=== PATIENT | female | born 1935 | race Caucasian/White ===

== ENCOUNTER 2016-03-21 13:25 | Emergency (ER) | payer MEDICARE ==
--- NOTE | 2016-03-21 13:51 | ER Document Report ---
ED Medical Screen (RME) - General Stated Complaint: WEAKNESS Time seen by provider: 13:48 Mode of Arrival: Wheelchair Information source: Patient Notes: 80-year-old female presents to ED for diarrhea. She states she has had diarrhea for 17 years since she started on gyiburide but it is much worse right now. States that she's already discussed straight through her and she's not been not getting any nutrition from it. States she has no appetite and she has diabetic. Has not had her Accu-Chek this morning due to not having enough blood. I have greeted and performed a rapid initial assessment of this patient. A comprehensive ED assessment and evaluation of the patient, analysis of test results and completion of medical decision making process will be conducted by an additional ED providers. TRAVEL OUTSIDE OF THE [place] IN LAST 30 DAYS: No - Related Data Allergies/Adverse Reactions: metoprolol succinate [From Toprol XL] Allergy (Verified 01/28/14 12:48) Penicillins Allergy (Verified 01/28/14 12:48) Past Medical History - Past Medical History Cardiac Medical History: Reports: Hx Hypercholesterolemia, Hx Hypertension Neurological Medical History: Reports: Hx Cerebrovascular Accident Endocrine Medical History: Reports: Hx Diabetes Mellitus Type 2 Past Surgical History: Reports: Hx Cardiac Surgery - pacemaker placement - Immunizations Hx Diphtheria, Pertussis, Tetanus Vaccination: Yes Physical Exam - Vital signs Vitals: Temp Pulse Resp BP Pulse Ox 98.2 F 72 18 148/60 H 95 03/21/16 13:44 03/21/16 13:44 03/21/16 13:44 03/21/16 13:44 03/21/16 13:44 Course - Vital Signs Vital signs: Temp Pulse Resp BP Pulse Ox 98.2 F 72 18 148/60 H 95 03/21/16 13:44 03/21/16 13:44 03/21/16 13:44 03/21/16 13:44 03/21/16 13:44
[2016-03-21 14:21] LABS: ABSOLUTE BASOPHILS # (AUTO) 0.1 10^3/uL (0.0-0.2); ABSOLUTE EOSINOPHILS # (AUTO) 0.2 10^3/uL (0.0-0.6); ABSOLUTE LYMPHOCYTES (AUTO) 2.2 10^3/uL (0.5-4.7); ABSOLUTE MONOCYTES (AUTO) 0.7 10^3/uL (0.1-1.4); ABSOLUTE NEUT (AUTO) 4.3 10^3/uL (1.7-8.2); BASOPHILS % (AUTO) 1.5 % (0-2); EOSINOPHILS % (AUTO) 2.8 % (0-6); HEMATOCRIT 41.8 % (36.0-47.0); HEMOGLOBIN 13.8 g/dL (12.0-15.5); HGB HCT DIFFERENCE -0.4; LYMPHOCYTES % (AUTO) 28.5 % (13-45); MEAN CORPUSCULAR HEMOGLOBIN 29.8 pg (27.0-33.4); MEAN CORPUSCULAR VOLUME 90 fl (80-97); MONOCYTES % (AUTO) 9.9 % (3-13); RED BLOOD COUNT 4.62 10^6/uL (3.72-5.28); RED CELL DISTRIBUTION WIDTH 13.6 % (11.5-14.0); SEGMENTED NEUTROPHILS % (AUTO) 57.3 % (42-78); WHITE BLOOD COUNT 7.5 10^3/uL (4.0-10.5)
[2016-03-21 14:30] LABS: ALANINE AMINOTRANSFERASE 30 U/L (9-52); ALBUMIN 4.2 g/dL (3.5-5.0); ALKALINE PHOSPHATASE 142 U/L (38-126); ANION GAP 14 (5-19); ASPARTATE AMINO TRANSFERASE 21 U/L (14-36); BILIRUBIN,TOTAL 0.7 mg/dL (0.2-1.3); BLOOD UREA NITROGEN 39 mg/dL (7-20); CALCIUM 9.5 mg/dL (8.4-10.2); CARBON DIOXIDE 24 mmol/L (22-30); CHLORIDE 98 mmol/L (98-107); CREATININE RESULT 2.29 mg/dL (0.52-1.25); GLUCOSE 285 mg/dL (75-110); POTASSIUM 4.7 mmol/L (3.6-5.0); SODIUM 136.2 mmol/L (137-145); TOTAL PROTEIN 8.3 g/dL (6.3-8.2)
[2016-03-21] MEDS ORDERED: NORMAL SALINE 1000 ML 1,000 ML IV PRN (16:31)
--- NOTE | 2016-03-21 16:35 | ER Document Report ---
ED General - General Chief Complaint: Loose Stools Stated Complaint: WEAKNESS Time seen by provider: 16:33 Mode of Arrival: Wheelchair Information source: Patient Notes: This is an 80-year-old female with a history of diabetes, chronic kidney disease who presents to the emergency room with diarrhea, dizziness and generalized weakness. Patient states that the diarrhea has been worse lately. She states that she thinks it's from the glipizide but she's been on the glipizide for quite some time. The patient denies any chest pain, shortness of breath, abdominal pain. Patient does state she's got decreased appetite. She denies fever, blood in the stool. She states that the diarrhea is very watery. TRAVEL OUTSIDE OF THE [place] IN LAST 30 DAYS: No - HPI Onset: Other - Diarrhea for the past several months Onset/Duration: Gradual Quality of pain: No pain Severity: None Pain Level: Denies Associated symptoms: denies: Chills, Nonproductive cough, Productive cough, Fever Exacerbated by: Denies Relieved by: Denies Similar symptoms previously: Yes Recently seen / treated by doctor: No - Related Data Allergies/Adverse Reactions: metoprolol succinate [From Toprol XL] Allergy (Verified 03/21/16 13:49) Penicillins Allergy (Verified 03/21/16 13:49) Past Medical History - General Information source: Patient - Social History Smoking Status: Never Smoker Cigarette use (# per day): No Chew tobacco use (# tins/day): No Frequency of alcohol use: None Drug Abuse: None Lives with: Family Family History: Reviewed & Not Pertinent Patient has suicidal ideation: No Patient has homicidal ideation: No - Past Medical History Cardiac Medical History: Reports: Hx Hypercholesterolemia, Hx Hypertension Pulmonary Medical History: Reports: None EENT Medical History: Reports: None Neurological Medical History: Reports: Hx Cerebrovascular Accident Endocrine Medical History: Reports: Hx Diabetes Mellitus Type 2 Renal/ Medical History: Denies: Hx Peritoneal Dialysis Malignancy Medical History: Reports: None GI Medical History: Reports: Other Musculoskeltal Medical History: Reports Hx Arthritis Skin Medical History: Reports None Psychiatric Medical History: Reports: None Traumatic Medical History: Reports: None Infectious Medical History: Reports: None Past Surgical History: Reports: Hx Cardiac Surgery - pacemaker placement - Immunizations Hx Diphtheria, Pertussis, Tetanus Vaccination: Yes Review of Systems - Review of Systems Constitutional: denies: Chills, Fever EENT: No symptoms reported Cardiovascular: No symptoms reported Respiratory: No symptoms reported Gastrointestinal: See HPI Genitourinary: No symptoms reported Female Genitourinary: No symptoms reported Musculoskeletal: No symptoms reported Skin: No symptoms reported Hematologic/Lymphatic: No symptoms reported Neurological/Psychological: No symptoms reported Physical Exam - Vital signs Vitals: Temp Pulse Resp BP Pulse Ox 98.2 F 72 18 148/60 H 95 03/21/16 13:44 03/21/16 13:44 03/21/16 13:44 03/21/16 13:44 03/21/16 13:44 Notes: Physical exam: GENERAL: 20-year-old female, alert and oriented 3, no acute distress. HEAD: Atraumatic, normocephalic. EYES: Pupils equal round and reactive to light, extraocular movements intact, sclera anicteric, conjunctiva are normal. ENT: TMs normal, nares patent, oropharynx clear without exudates. Moist mucous membranes. NECK: Normal range of motion, supple without lymphadenopathy or JVD. LUNGS: Breath sounds clear to auscultation bilaterally and equal. No wheezes rales or rhonchi. HEART: Regular rate and rhythm without murmurs, rubs or gallops. ABDOMEN: Soft, normoactive bowel sounds. No tenderness to palpation. No guarding, no rebound. No masses appreciated. EXTREMITIES: Normal range of motion, no pitting or edema. No clubbing or cyanosis. NEUROLOGICAL: Cranial nerves II through XII grossly intact. Normal speech, normal gait. PSYCH: Normal mood, normal affect. SKIN: Warm, Dry, normal turgor, no rashes or lesions noted. Course - Vital Signs Vital signs: Temp Pulse Resp BP Pulse Ox 98.2 F 70 18 187/62 H 96 03/21/16 13:44 03/21/16 19:08 03/21/16 13:44 03/21/16 19:08 03/21/16 19:08 - Laboratory Result Diagrams: 03/21/16 13:55 03/21/16 13:55 Laboratory results interpreted by me: 03/21/16 13:55 Sodium 136.2 L BUN 39 H Creatinine 2.29 H Est GFR ( Amer) 25 L Est GFR (Non-Af Amer) 20 L Glucose 285 H Alkaline Phosphatase 142 H Total Protein 8.3 H - Diagnostic Test Radiology reviewed: Image reviewed, Reports reviewed - CT of the head shows no bleed or evidence of strokes. Discharge - Discharge Clinical Impression: diarrhea, dehydration Condition: Stable Disposition: HOME, SELF-CARE Instructions: Diarrhea, Nonspecific ([facility]), Dehydration ([facility]) Additional Instructions: Recommendations Rest, drink plenty of fluids. Right as tolerated. Follow-up with your doctor: If you cannot get into the office, consider the [facility] primary care office in [place] on [facility]. When you are evaluated by physician: Bring a copy of today's labs with you. Return to the emergency room for worsening weakness or concerns that you going to faint or any concerns he getting worse.
[2016-03-21 17:05] LABS: CREATINE KINASE MB 0.83 ng/mL (<4.55)
[2016-03-21 17:07] LABS: TROPONIN I < 0.012 ng/mL
[2016-03-21 19:09] VITALS: BP 187/62
--- NOTE | 2016-03-21 23:47 | EKG REPORT ---
SEVERITY:- BORDERLINE ECG - SINUS RHYTHM LOW VOLTAGE IN FRONTAL LEADS BORDERLINE R WAVE PROGRESSION, ANTERIOR LEADS : Confirmed by: Anne-Marie Schwartz 21-Mar-2016 23:46:35
== END 2016-03-21 19:08 | disposition home or self-care (01) ==
LOC: ER 13:25
DX: R19.7 Diarrhea, unspecified (principal); E86.0 Dehydration; R42 Dizziness and giddiness; R53.1 Weakness; R63.0 Anorexia; I10 Essential (primary) hypertension; E11.9 Type 2 diabetes mellitus without complications; Z79.84 Long term (current) use of oral hypoglycemic drugs; Z88.0 Allergy status to penicillin; Z88.8 Allergy status to other drugs, medicaments and biological substances; Z86.73 Personal history of transient ischemic attack (TIA), and cerebral infarction without residual deficits; Z95.0 Presence of cardiac pacemaker
CPT/HCPCS: 36415; 70450; 80053; 82550; 82553; 84484; 85025; 93005; 93010; 96360; 96361; 99284

== ENCOUNTER → 2019-02-19 | Outpatient (CLI) | payer MEDICARE ==
[2019-02-19 14:23] LABS: ALBUMIN 4.5 g/dL (3.5-5.0); ANION GAP 17 (5-19); BLOOD UREA NITROGEN 85 mg/dL (7-20); CALCIUM 9.7 mg/dL (8.4-10.2); CARBON DIOXIDE 24 mmol/L (22-30); CHLORIDE 97 mmol/L (98-107); GLUCOSE 128 mg/dL (75-110); IRON(TIBC) 83.6 ug/dL (37-170); PHOSPHORUS 6.3 mg/dL (2.5-4.5); POTASSIUM 5.4 mmol/L (3.6-5.0)
[2019-02-19 14:55] LABS: URINE CREATININE 44.4 mg/dL (15-278)
[2019-02-19 15:03] LABS: UR PRO/CREAT RATIO RESULT 5.5 mg/mg (0.0-0.2); URINE PROTEIN 243.9 mg/dL (<12)
[2019-02-19 15:30] LABS: FOLATE 9.97 ng/mL (>2.76)
== END ==
LOC: OD 12:46
PROVIDERS: ATTEND Internal Medicine Nephrology
DX: E11.22 Type 2 diabetes mellitus with diabetic chronic kidney disease (principal); I12.9 Hypertensive chronic kidney disease with stage 1 through stage 4 chronic kidney disease, or unspecified chronic kidney disease; N18.5 Chronic kidney disease, stage 5; D63.1 Anemia in chronic kidney disease
CPT/HCPCS: 36415; 80069; 82306; 82570; 82607; 82728; 82746; 83540; 83550; 83735; 84156

== ENCOUNTER → 2019-03-11 | Outpatient (CLI) | payer MEDICARE ==
[2019-03-11 12:07] LABS: HEMATOCRIT 29.4 % (36.0-47.0); HEMOGLOBIN 10.2 g/dL (12.0-15.5); MEAN CORPUSCULAR HEMOGLOBIN 32.3 pg (27.0-33.4); MEAN CORPUSCULAR HGB CONC 34.8 g/dL (32.0-36.0); MEAN CORPUSCULAR VOLUME 93 fl (80-97); PLATELET COUNT 182 10^3/uL (150-450); RED BLOOD COUNT 3.16 10^6/uL (3.72-5.28); RED CELL DISTRIBUTION WIDTH 13.1 % (11.5-14.0)
[2019-03-11 12:20] LABS: UR PRO/CREAT RATIO RESULT 2.7 mg/mg (0.0-0.2); URINE CREATININE 53.7 mg/dL (15-278); URINE PROTEIN 145.7 mg/dL (<12)
[2019-03-11 12:24] LABS: ALBUMIN 4.2 g/dL (3.5-5.0); ANION GAP 17 (5-19); BLOOD UREA NITROGEN 86 mg/dL (7-20); CALCIUM 9.7 mg/dL (8.4-10.2); CARBON DIOXIDE 23 mmol/L (22-30); CHLORIDE 97 mmol/L (98-107); GLUCOSE 155 mg/dL (75-110); IRON(TIBC) 86.5 ug/dL (37-170)
[2019-03-11 12:50] LABS: PHOSPHORUS 4.7 mg/dL (2.5-4.5)
[2019-03-11 13:18] LABS: ABSOLUTE LYMPHOCYTES# (MANUAL) 1.5 10^3/uL (0.5-4.7); ABSOLUTE MONOCYTES # (MANUAL) 0.4 10^3/uL (0.1-1.4); BAND NEUTROPHILS % (MANUAL) 1 % (3-5); BASOPHILS % (MANUAL) 3 % (0-2); EOSINOPHILS % (MANUAL) 10 % (0-6); LYMPHOCYTES % (MANUAL) 25 % (13-45); MONOCYTES % (MANUAL) 7 % (3-13); SEGMENTED NEUTROPHILS % (MAN) 54 % (42-78); TOTAL CELLS COUNTED 100
[2019-03-11 13:20] LABS: PLATELET COMMENT ADEQUATE; RBC MORPHOLOGY COMMENT NORMO-CYTIC/CHROMIC
[2019-03-11 14:43] LABS: FOLATE 8.12 ng/mL (>2.76)
== END ==
LOC: OD 11:18
PROVIDERS: ATTEND Internal Medicine Nephrology
DX: I12.0 Hypertensive chronic kidney disease with stage 5 chronic kidney disease or end stage renal disease (principal); N18.5 Chronic kidney disease, stage 5; E11.22 Type 2 diabetes mellitus with diabetic chronic kidney disease; D63.1 Anemia in chronic kidney disease
CPT/HCPCS: 36415; 80069; 82306; 82570; 82607; 82728; 82746; 83540; 83550; 83735; 83970; 84156; 85025

== ENCOUNTER → 2019-04-01 | Outpatient (CLI) | payer MEDICARE ==
[2019-04-01 12:57] LABS: HEMATOCRIT 30.5 % (36.0-47.0); HEMOGLOBIN 10.2 g/dL (12.0-15.5); MEAN CORPUSCULAR HEMOGLOBIN 32.1 pg (27.0-33.4); MEAN CORPUSCULAR HGB CONC 33.6 g/dL (32.0-36.0); MEAN CORPUSCULAR VOLUME 96 fl (80-97); PLATELET COUNT 161 10^3/uL (150-450); RED BLOOD COUNT 3.19 10^6/uL (3.72-5.28); WHITE BLOOD COUNT 6.5 10^3/uL (4.0-10.5)
[2019-04-01 13:21] LABS: ANION GAP 14 (5-19); BLOOD UREA NITROGEN 81 mg/dL (7-20); CALCIUM 9.5 mg/dL (8.4-10.2); CARBON DIOXIDE 23 mmol/L (22-30); CHLORIDE 98 mmol/L (98-107); GLUCOSE 141 mg/dL (75-110); PHOSPHORUS 5.3 mg/dL (2.5-4.5); POTASSIUM 5.7 mmol/L (3.6-5.0)
[2019-04-01 14:04] LABS: ABSOLUTE LYMPHOCYTES# (MANUAL) 1.4 10^3/uL (0.5-4.7); ABSOLUTE MONOCYTES # (MANUAL) 0.5 10^3/uL (0.1-1.4); BASOPHILS % (MANUAL) 1 % (0-2); EOSINOPHILS % (MANUAL) 9 % (0-6); LYMPHOCYTES % (MANUAL) 22 % (13-45); MONOCYTES % (MANUAL) 8 % (3-13); SEGMENTED NEUTROPHILS % (MAN) 60 % (42-78); TOTAL CELLS COUNTED 100
[2019-04-01 14:05] LABS: PLATELET COMMENT ADEQUATE; RBC MORPHOLOGY COMMENT NORMO-CYTIC/CHROMIC
== END ==
LOC: OD 12:05
PROVIDERS: ATTEND Internal Medicine Nephrology
DX: E11.22 Type 2 diabetes mellitus with diabetic chronic kidney disease (principal); I12.0 Hypertensive chronic kidney disease with stage 5 chronic kidney disease or end stage renal disease; N18.5 Chronic kidney disease, stage 5; E55.9 Vitamin D deficiency, unspecified; N25.81 Secondary hyperparathyroidism of renal origin
CPT/HCPCS: 36415; 80048; 84100; 85025

== ENCOUNTER → 2019-04-04 | Outpatient (CLI) | payer MEDICARE ==
[2019-04-04 13:38] LABS: ANION GAP 14 (5-19); BLOOD UREA NITROGEN 71 mg/dL (7-20); CALCIUM 9.3 mg/dL (8.4-10.2); CARBON DIOXIDE 24 mmol/L (22-30); CHLORIDE 98 mmol/L (98-107); GLUCOSE 117 mg/dL (75-110); POTASSIUM 4.6 mmol/L (3.6-5.0)
== END ==
LOC: OD 12:47
PROVIDERS: ATTEND Internal Medicine Nephrology
DX: N18.5 Chronic kidney disease, stage 5 (principal)
CPT/HCPCS: 36415; 80048

== ENCOUNTER → 2019-09-04 | Outpatient (CLI) | payer MEDICARE ==
[2019-09-04 12:46] LABS: ABSOLUTE BASOPHILS # (AUTO) 0.1 10^3/uL (0.0-0.2); ABSOLUTE EOSINOPHILS # (AUTO) 0.7 10^3/uL (0.0-0.6); ABSOLUTE LYMPHOCYTES (AUTO) 1.6 10^3/uL (0.5-4.7); ABSOLUTE MONOCYTES (AUTO) 0.6 10^3/uL (0.1-1.4); ABSOLUTE NEUT (AUTO) 3.3 10^3/uL (1.7-8.2); EOSINOPHILS % (AUTO) 11.6 % (0-6); HEMATOCRIT 24.8 % (36.0-47.0); HEMOGLOBIN 8.4 g/dL (12.0-15.5); LYMPHOCYTES % (AUTO) 25.8 % (13-45); MEAN CORPUSCULAR HEMOGLOBIN 32.2 pg (27.0-33.4); MEAN CORPUSCULAR HGB CONC 33.8 g/dL (32.0-36.0); MEAN CORPUSCULAR VOLUME 95 fl (80-97); MONOCYTES % (AUTO) 8.9 % (3-13); PLATELET COUNT 165 10^3/uL (150-450); RED BLOOD COUNT 2.61 10^6/uL (3.72-5.28); RED CELL DISTRIBUTION WIDTH 13.2 % (11.5-14.0); SEGMENTED NEUTROPHILS % (AUTO) 51.7 % (42-78); TOTAL CELLS COUNTED % (AUTO) 100 %; WHITE BLOOD COUNT 6.4 10^3/uL (4.0-10.5)
[2019-09-04 12:54] LABS: ALBUMIN 4.1 g/dL (3.5-5.0); ANION GAP 12 (5-19); BLOOD UREA NITROGEN 81 mg/dL (7-20); CALCIUM 10.5 mg/dL (8.4-10.2); CARBON DIOXIDE 23 mmol/L (22-30); CHLORIDE 99 mmol/L (98-107); GLUCOSE 134 mg/dL (75-110); PHOSPHORUS 6.2 mg/dL (2.5-4.5); POTASSIUM 5.2 mmol/L (3.6-5.0)
[2019-09-04 17:41] LABS: IRON(TIBC) 60.1 ug/dL (37-170)
[2019-09-05 14:02] LABS: APPEARANCE,URINE SLIGHTLY-CLOUDY; BILIRUBIN,URINE NEGATIVE (NEGATIVE); COLOR,URINE YELLOW; GLUCOSE, URINE NEGATIVE (NEGATIVE); KETONES,URINE NEGATIVE (NEGATIVE); LEUKOCYTE ESTERASE,URINE TRACE (NEGATIVE); NITRITE,URINE NEGATIVE (NEGATIVE); PROTEIN,URINE 100 mg/dL (NEGATIVE); URINE SPECIFIC GRAVITY 1.012; UROBILINOGEN,URINE NEGATIVE mg/dL (<2.0)
== END ==
LOC: OD 12:13
PROVIDERS: ATTEND Internal Medicine Nephrology
DX: N18.5 Chronic kidney disease, stage 5 (principal); D63.1 Anemia in chronic kidney disease; R80.1 Persistent proteinuria, unspecified; E21.1 Secondary hyperparathyroidism, not elsewhere classified
CPT/HCPCS: 36415; 80069; 81001; 82043; 82306; 82570; 82728; 83540; 83550; 83735; 83970; 85025

== ENCOUNTER 2019-09-09 14:37 | Inpatient (IN) | payer MEDICARE ==
--- NOTE | 2019-09-09 15:45 | ER Document Report ---
ED General - General Chief Complaint: Nausea/Vomiting Stated Complaint: NAUSEA Time Seen by Provider: 09/09/19 15:27 Primary Care Provider: JOSLYN REYNOLDS MD [Primary Care Provider] - Follow up as needed Notes: 83-year-old female with a history of end-stage renal disease who is supposed to start dialysis tomorrow presents emergency department complaining of generalized weakness, dry heaving pretty much every morning that gets better when her daughter puts her on her home oxygen. Daughter states that last evening/early this morning around 4 AM the patient's oxygen saturation was noted to be 70%. The daughter does have oxygen at home so the daughter put the patient on oxygen and she felt better. Patient denies any true vomiting, does admit a small amount of diarrhea last evening that was nonbloody and not melanotic. Patient's really only complaint is feeling short of breath. Denies cough, denies fevers, denies chest pain or abdominal pain. Denies swelling in her legs. States she does not have a history of congestive heart failure. Patient is prescribed Lasix 80 mg daily, daughter states that she only gives her half a tablet a day unless the patient's legs are swollen and then she gives her the full [address] Taylor's orders. TRAVEL OUTSIDE OF THE [place] IN LAST 30 DAYS: No - Related Data Allergies/Adverse Reactions: metoprolol succinate [From Toprol XL] Allergy (Verified 09/09/19 15:42) Penicillins Allergy (Verified 09/09/19 15:42) Past Medical History - General Information source: Patient, Relative - Social History Smoking Status: Never Smoker Frequency of alcohol use: None Drug Abuse: None Family History: Reviewed & Not Pertinent - Past Medical History Cardiac Medical History: Reports: Hx Hypercholesterolemia, Hx Hypertension Neurological Medical History: Reports: Hx Cerebrovascular Accident Endocrine Medical History: Reports: Hx Diabetes Mellitus Type 2 Renal/ Medical History: Denies: Hx Peritoneal Dialysis GI Medical History: Reports: Hx Ulcer Musculoskeletal Medical History: Reports Hx Arthritis Past Surgical History: Reports: Hx Cardiac Surgery - pacemaker placement - Immunizations Hx Diphtheria, Pertussis, Tetanus Vaccination: Yes Review of Systems - Review of Systems Constitutional: See HPI, Weakness EENT: No symptoms reported Cardiovascular: No symptoms reported Respiratory: See HPI, Short of breath Gastrointestinal: See HPI, Diarrhea, Nausea. denies: Vomiting -: Yes All other systems reviewed and negative Physical Exam - Vital signs Vitals: Pulse Ox 88 L 09/09/19 14:48 Interpretation: Hypoxic - Notes Notes: GENERAL: Alert, sitting up in bed, leaning forward however she is able to lay back flat without difficulty. Appears somewhat short of breath. HEAD: Normocephalic, atraumatic EYES: Pupils equal, round and reactive to light, extraocular movements intact. ENT: Oral mucosa moist, tongue midline. NECK: Full range of motion, supple, trachea midline. LUNGS: Crackles at the bases and approximately one third of the way up the lung zones, no wheezes. Moderately tachypneic. Requiring 5 L via nasal cannula to stay at 92%. HEART: Regular rate and rhythm, 3/6 systolic murmur, no gallops or rubs. ABDOMEN: Soft, nontender, nondistended, bowel sounds present in all 4 quadrants. EXTREMITIES: Moves all 4 extremities spontaneously, no edema, radial and dorsalis pedis pulses 2/4 bilaterally. No cyanosis. AV fistula in the right arm with palpable thrill. NEUROLOGICAL: Alert and oriented x3, normal speech. PSYCH: Normal mood, normal affect. SKIN: Warm, Dry, normal turgor. Course - Re-evaluation Re-evalutation: 09/09/19 17:02 CBC shows anemia with a hemoglobin 8.4, platelets normal, INR slightly prolonged, CMP shows potassium elevated at 5.7. No significant peak T waves on the EKG, patient is being treated with calcium gluconate, insulin, glucose, Lasix, sodium bicarb and V[place]. proBNP is markedly elevated, BUN and creatinine consistent with end-stage renal disease. Chest x-ray shows fluid overload. Patient currently doing quite well on 5 L via nasal cannula. No indication for intubation or BiPAP at this time. Discussed case with Dr. Reynolds who agrees to dialyze the patient tomorrow morning. Also discussed case with Dr. Pedersen who agrees to admit the patient to the [facility]. - Vital Signs Vital signs: Temp Pulse Resp BP Pulse Ox 99.2 F 18 141/47 H 90 L 09/09/19 16:38 09/09/19 16:23 09/09/19 16:23 09/09/19 16:23 - Laboratory Result Diagrams: 09/09/19 15:29 09/09/19 15:29 Laboratory results interpreted by me: 09/09/19 09/09/19 09/09/19 15:29 15:29 15:29 RBC 2.61 L Hgb 8.4 L Hct 25.1 L Lymph % (Auto) 11.2 L Seg Neutrophils % 78.3 H Sodium 136.2 L Potassium 5.7 H BUN 98 H Creatinine 6.99 H Est GFR ( Amer) 7 L Est GFR (MDRD) Non-Af 6 L Glucose 124 H CK-MB (CK-2) 6.25 H NT-Pro-B Natriuret Pep 40515 H - EKG Interpretation by Me Additional EKG results interpreted by me: 09/09/19 17:02 EKG shows atrially paced complexes at a rate of 62, normal axis, normal intervals, no ST segment elevations or depressions, T wave inversions are noted in aVF, V5 and V6, flattening in V3, biphasic T waves in lead III per my interpretation. Critical Care Note - Critical Care Note Total time excluding time spent on procedures (mins): 35 Discharge - Discharge Clinical Impression: ESRD needing dialysis, Hyperkalemia, diminished renal excretion, Hypoxia Pulmonary edema Qualifiers: Chronicity: acute Qualified Code(s): J81.0 - Acute pulmonary edema Condition: Fair Disposition: ADMITTED INPATIENT Admitting Provider: Nuvia (Hospitalist) Unit Admitted: IMCU Referrals: JOSLYN REYNOLDS MD [Primary Care Provider] - Follow up as needed
[2019-09-09 15:50] LABS: ABSOLUTE BASOPHILS # (AUTO) 0.1 10^3/uL (0.0-0.2); ABSOLUTE MONOCYTES (AUTO) 0.8 10^3/uL (0.1-1.4); ABSOLUTE NEUT (AUTO) 6.9 10^3/uL (1.7-8.2); BASOPHILS % (AUTO) 1.2 % (0-2); EOSINOPHILS % (AUTO) 0.1 % (0-6); HEMATOCRIT 25.1 % (36.0-47.0); HEMOGLOBIN 8.4 g/dL (12.0-15.5); LYMPHOCYTES % (AUTO) 11.2 % (13-45); MEAN CORPUSCULAR HEMOGLOBIN 32.1 pg (27.0-33.4); MEAN CORPUSCULAR HGB CONC 33.3 g/dL (32.0-36.0); MEAN CORPUSCULAR VOLUME 96 fl (80-97); MONOCYTES % (AUTO) 9.2 % (3-13); PLATELET COUNT 171 10^3/uL (150-450); RED BLOOD COUNT 2.61 10^6/uL (3.72-5.28); RED CELL DISTRIBUTION WIDTH 13.1 % (11.5-14.0); SEGMENTED NEUTROPHILS % (AUTO) 78.3 % (42-78); TOTAL CELLS COUNTED % (AUTO) 100 %; WHITE BLOOD COUNT 8.8 10^3/uL (4.0-10.5)
[2019-09-09 15:59] LABS: INTERNATIONAL RATION (INR) 1.12; PROTHROMBIN TIME 14.6 SEC (11.4-15.4)
[2019-09-09 16:11] LABS: ALBUMIN 4.3 g/dL (3.5-5.0); ALKALINE PHOSPHATASE 58 U/L (38-126); ANION GAP 13 (5-19); ASPARTATE AMINO TRANSFERASE 26 U/L (14-36); BILIRUBIN,DIRECT 0.2 mg/dL (0.0-0.4); BILIRUBIN,TOTAL 0.6 mg/dL (0.2-1.3); BLOOD UREA NITROGEN 98 mg/dL (7-20); CALCIUM 9.9 mg/dL (8.4-10.2); CARBON DIOXIDE 22 mmol/L (22-30); CHLORIDE 101 mmol/L (98-107); CREATINE KINASE 114 U/L (30-135); GLUCOSE 124 mg/dL (75-110); POTASSIUM 5.7 mmol/L (3.6-5.0); TOTAL PROTEIN 7.6 g/dL (6.3-8.2)
[2019-09-09 16:19] LABS: CREATINE KINASE MB 6.25 ng/mL (<4.55)
--- NOTE | 2019-09-09 16:20 | RADIOLOGY REPORT (SQ) ---
EXAM DESCRIPTION: CHEST 2 VIEWS IMAGES COMPLETED DATE/TIME: 09/09/2019 4:02 pm REASON FOR STUDY: SOB, hypoxia, ?new CHF COMPARISON: 12/10/2011 NUMBER OF VIEWS: Two views. TECHNIQUE: Frontal and lateral radiographic views of the chest acquired. LIMITATIONS: None. FINDINGS: LUNGS AND PLEURA: Moderate bilateral pleural effusions. MEDIASTINUM AND HILAR STRUCTURES: No masses or contour abnormality. HEART AND VASCULAR STRUCTURES: Cardiac enlargement. Vascular congestion. BONES: No acute findings. HARDWARE: Left dual lead pacemaker position unchanged. OTHER: No other significant finding. IMPRESSION: CHF. TECHNICAL DOCUMENTATION: JOB ID: [id number] 2010 [employer]- All Rights Reserved Reading location - IP/workstation name: [email or web address]
[2019-09-09 16:23] LABS: TROPONIN I 3.33 ng/mL
[2019-09-09] MEDS ORDERED: CALCIUM GLUC IN NACL, ISO-OSM 1 GM/50 ML RTUPB IV ONE (16:41)
[2019-09-09] MEDS ORDERED: DEXTROSE 50%-WATER 25 GM/50 ML DISP.SYRIN IV ONE (16:41)
[2019-09-09] MEDS ORDERED: SODIUM BICARBONATE 8.4% INJ 50 MEQ/50 ML DISP.SYRIN IV ONE (16:41)
[2019-09-09] MEDS ORDERED: FUROSEMIDE INJ/PF 40 MG/4 ML SDV IV ONE (16:41)
[2019-09-09 17:05] LABS: VENOUS BLOOD BASE EXCESS -3.4 mmol/L; VENOUS BLOOD HCO3 22.1 mmol/L (20-32); VENOUS BLOOD PCO2 41.7 mmHg (35-63); VENOUS BLOOD PH 7.34 (7.30-7.42)
[2019-09-09] MEDS: INSULIN REG, HUMAN 100 UNIT/ML 3 ML VIAL (PYX) SUBCUT ONE ×2 (17:43→18:05)
[2019-09-09] MEDS ORDERED: INSULIN REG, HUMAN 100 UNIT/ML 3 ML VIAL (PYX) IV ONE (17:46)
[2019-09-09] MEDS ORDERED: TEMAZEPAM 7.5 MG CAPSULE PO PRN (18:13)
[2019-09-09] MEDS ORDERED: OXYCODONE-ACETAMINOPHEN 5-325 MG TABLET PO PRN (18:13)
[2019-09-09] MEDS ORDERED: PROMETHAZINE HCL INJ 25 MG/1 ML VIAL IV PRN (18:13)
[2019-09-09] MEDS ORDERED: GLUCAGON,HUMAN RECOMB 1 MG INJ IM PRN (18:19)
[2019-09-09] MEDS ORDERED: DEXTROSE 40% GEL 15 GM TUBE PO PRN ×2 (18:19)
[2019-09-09] MEDS ORDERED: DEXTROSE 50%-WATER 25 GM/50 ML DISP.SYRIN IV PRN ×2 (18:19)
[2019-09-09] MEDS ORDERED: IPRATROPIUM/ALBUTEROL 0.5-2.5 MG/3 ML AMPUL NEB PRN (18:20)
[2019-09-09 18:36] LABS: APPEARANCE,URINE SLIGHTLY-CLOUDY; BILIRUBIN,URINE NEGATIVE (NEGATIVE); COLOR,URINE YELLOW; GLUCOSE, URINE NEGATIVE (NEGATIVE); KETONES,URINE NEGATIVE (NEGATIVE); LEUKOCYTE ESTERASE,URINE NEGATIVE (NEGATIVE); NITRITE,URINE NEGATIVE (NEGATIVE); PROTEIN,URINE >=500 mg/dL (NEGATIVE); URINE SPECIFIC GRAVITY 1.013; UROBILINOGEN,URINE NEGATIVE mg/dL (<2.0)
--- NOTE | 2019-09-09 18:42 | EKG REPORT ---
SEVERITY:- ABNORMAL ECG - ATRIAL-PACED VENTRICULAR SENSED COMPLEXES NONSPECIFIC ST-T CHANGES DIFFUSE, NEW CHANGES COMPARED TO 03/21/16 EKG.. : Confirmed by: Chevy Rivera MD 09-Sep-2019 18:42:07
[2019-09-09] MEDS ORDERED: HYDRALAZINE HCL INJ/PF 20 MG/1 ML SDV IV PRN (19:19)
[2019-09-09] MEDS ORDERED: METOPROLOL TARTRATE PF/INJ 5 MG/5 ML SDV IV PRN (19:20)
--- NOTE | 2019-09-09 19:28 | PDOC H&P ---
History of Present Illness Admission Date/PCP: 09/09/19 17:27 LUCRETIA ROLDAN History of Present Illness: RAHUL ORTIZ is a 83 year old female past medical history of hypertension, CHF, CAD, diabetes, restless leg syndrome, hyperlipidemia, depression, hypothyroidism, anemia, end-stage renal disease not on dialysis who has a fistula in the left upper extremity brought to ED by her daughter after patient was complaining of dry heaving short of breath and shortness of breath this morning, daughter who is accompanying her stating that she was noted to be saturating in the 70s and she use her oxygen on her and she felt better after that, and was brought to ED for further evaluation. On my encounter patient is resting in bed no apparent distress, when asked how she is feeling "terrible" she has been having dry heaves however she has not vomited, denies any chest pain, abdominal pain, diarrhea, constipation, vomiting or any urinary symptoms. Farm Management Supervisor was consulted by ED physician and she is scheduled to have her first hemodialysis tomorrow morning. Hospitalist consulted for admission. Past Medical History Cardiac Medical History: Reports: Hyperlipidema, Hypertension Endocrine Medical History: Reports: Diabetes Mellitus Type 2 Musculoskeltal Medical History: Reports: Arthritis Social History Smoking Status: Never Smoker Family History Family History: Reviewed & Not Pertinent Parental Family History Reviewed: Yes Children Family History Reviewed: Yes Sibling(s) Family History Reviewed.: Yes Medication/Allergy Home Medications: Amlodipine Besylate [Norvasc 10 mg Tablet] 10 mg PO QHS 09/09/19 Atorvastatin Calcium [Lipitor 20 mg Tablet] 20 mg PO QHS 09/09/19 Calcitriol [Rocaltrol 0.25 Mcg Capsule] 1 cap PO DAILY 09/09/19 Cholecalciferol (Vitamin D3) [Vitamin D3] 125 mcg PO DAILY 09/09/19 Ferrous Sulfate [Feosol 325 mg Tablet] 325 mg PO DAILY 09/09/19 Furosemide [Lasix 80 mg Tablet] 40 mg PO DAILY 09/09/19 Hydralazine HCl [Apresoline 50 mg Tablet] 50 mg PO Q12 09/09/19 Insulin Glargine,Hum.rec.anlog [Lantus Insulin 100 Unit/mL Insulin Pen] 15 unit SUBCUT DAILY 09/09/19 Isosorbide Mononitrate [Imdur 30 mg Tablet.er] 30 mg PO Q12 09/09/19 Levothyroxine Sodium [Synthroid 0.025 mg Tablet] 37 mcg PO DAILY 09/09/19 Loratadine [Claritin 10 mg Tablet] 10 mg PO QHS 09/09/19 Losartan Potassium 100 mg PO DAILY 09/09/19 Magnesium Oxide [Mag-Ox 400 mg Tablet] 400 mg PO DAILY 09/09/19 Paroxetine HCl [Paxil] 5 mg PO QHS 09/09/19 Ropinirole HCl 0.5 mg PO QPM 09/09/19 Sevelamer Carbonate [Renvela] 800 mg PO MEALS 09/09/19 Allergies/Adverse Reactions: metoprolol succinate [From Toprol XL] Allergy (Verified 09/09/19 15:42) Penicillins Allergy (Verified 09/09/19 15:42) Review of Systems Review of Systems: as per hpi Physical Exam Vital Signs: Temp Pulse Resp BP Pulse Ox 99.2 F 19 139/45 H 93 09/09/19 16:38 09/09/19 19:00 09/09/19 17:01 09/09/19 19:00 Intake & Output 09/08/19 09/09/19 09/10/19 06:59 06:59 06:59 Weight 58.967 kg General appearance: PRESENT: no acute distress, well-developed, well-nourished Head exam: PRESENT: atraumatic, normocephalic Respiratory exam: PRESENT: clear to auscultation cha, crackles. ABSENT: rales, rhonchi, wheezes Cardiovascular exam: PRESENT: RRR. ABSENT: diastolic murmur, rubs, systolic murmur GI/Abdominal exam: PRESENT: normal bowel sounds, soft. ABSENT: distended, guarding, mass, organolmegaly, rebound, tenderness Extremities exam: PRESENT: full ROM. ABSENT: calf tenderness, clubbing, pedal edema Neurological exam: PRESENT: alert, awake, oriented to person, oriented to place, oriented to time, oriented to situation, CN II-XII grossly intact. ABSENT: motor sensory deficit Skin exam: PRESENT: dry Results Laboratory Results: 09/09/19 15:29 09/09/19 15:29 09/09/19 09/09/19 09/09/19 15:29 15:29 16:51 WBC 8.8 RBC 2.61 L Hgb 8.4 L Hct 25.1 L MCV 96 MCH 32.1 MCHC 33.3 RDW 13.1 Plt Count 171 Seg Neutrophils % 78.3 H VBG pH 7.34 VBG pCO2 41.7 VBG HCO3 22.1 VBG Base Excess -3.4 Sodium 136.2 L Potassium 5.7 H Chloride 101 Carbon Dioxide 22 Anion Gap 13 BUN 98 H Creatinine 6.99 H Est GFR ( Amer) 7 L Glucose 124 H Calcium 9.9 Total Bilirubin 0.6 AST 26 Alkaline Phosphatase 58 Total Protein 7.6 Albumin 4.3 Urine Color Urine Appearance Urine pH Ur Specific [place] Urine Protein Urine Glucose (UA) Urine Ketones Urine Blood Urine Nitrite Ur Leukocyte Esterase Urine WBC (Auto) Urine RBC (Auto) 09/09/19 18:15 WBC RBC Hgb Hct MCV MCH MCHC RDW Plt Count Seg Neutrophils % VBG pH VBG pCO2 VBG HCO3 VBG Base Excess Sodium Potassium Chloride Carbon Dioxide Anion Gap BUN Creatinine Est GFR ( Amer) Glucose Calcium Total Bilirubin AST Alkaline Phosphatase Total Protein Albumin Urine Color YELLOW Urine Appearance SLIGHTLY-CLOUDY Urine pH 5.0 Ur Specific [place] 1.013 Urine Protein >=500 H Urine Glucose (UA) NEGATIVE Urine Ketones NEGATIVE Urine Blood NEGATIVE Urine Nitrite NEGATIVE Ur Leukocyte Esterase NEGATIVE Urine WBC (Auto) 2 Urine RBC (Auto) 0 09/09/19 09/09/19 15:29 15:29 Creatine Kinase 114 CK-MB (CK-2) 6.25 H Troponin I 3.330 NT-Pro-B Natriuret Pep 40693 H Impressions: Chest X-Ray 09/09/19 15:41 IMPRESSION: CHF. Assessment and Plan - Diagnosis (1) Acute respiratory failure with hypoxia Is this a current diagnosis for this admission?: Yes Plan: Most likely to acute CHF complicated by underlying worsening CKD. Admit to IMC, strict in and out, IV diuretics, RAFFAELE and beta-blockers DuoNebs, IV steroids, flutter valve, incentive spirometry, LABA, LABA, ICS. Nephrology on board patient is scheduled to have dialysis tomorrow. (2) Acute CHF Qualifiers: Heart failure type: systolic Qualified Code(s): I50.21 - Acute systolic (congestive) heart failure Is this a current diagnosis for this admission?: Yes Plan: Denies any anginal symptoms. Cardiac diet, strict in and out, RAFFAELE, ARB, IV diuretics. Hemodialysis planned. (3) Diabetes Qualifiers: Diabetes mellitus type: type 2 Diabetes mellitus custodial insulin use: with custodial use Diabetes mellitus complication detail: with chronic kidney disease Chronic kidney disease stage: on chronic dialysis Is this a current diagnosis for this admission?: Yes Plan: Diabetic diet. Basal, Accu-Chek and correctional insulin. Hypoglycemic protocol. Adjust dosages. Outpatient PCP follow-up. (4) Hypertension Is this a current diagnosis for this admission?: Yes Plan: Hypovolemic. Hypertensive. Resume home meds. PRN IV hydralazine metoprolol. Adjust meds as needed. Outpatient PCP follow-up. (5) Anemia of chronic disease Is this a current diagnosis for this admission?: Yes Plan: Denies any melena, hematochezia, hematemesis, vaginal bleeding or hemoptysis. Most likely due to anemia of chronic disease. Nephrology on board. Monitor H&H. Patient will need erythropoietin infusion. (6) Hypothyroidism Is this a current diagnosis for this admission?: Yes Plan: Resume home meds. (7) Restless leg syndrome Is this a current diagnosis for this admission?: Yes Plan: Takes ropinirole at home. Patient may also be iron deficient. Resume home meds. Anemia panel. (8) Hyperkalemia Is this a current diagnosis for this admission?: Yes Plan: No acute EKG changes. Hyperkalemia protocol. Hemodialysis planned. (9) Hyperlipidemia Is this a current diagnosis for this admission?: Yes Plan: Resume home meds. (10) ESRD needing dialysis Is this a current diagnosis for this admission?: Yes Plan: Dialysis diet. Patient has mature right upper extremity fistula. Nephrology on board. Hemodialysis planned tomorrow. - Time Time Spent with patient: 35 or more minutes Medications reviewed and adjusted accordingly: Yes Anticipated Discharge Disposition: Home with Home Health Anticipated Discharge Timeframe: within 72 hours
[2019-09-09] MEDS ORDERED: ROPINIROLE HCL 1 MG PO SCH (19:30)
[2019-09-09] MEDS: PATIROMER 8.4 GM SUSP PACKET PO SCH (19:53)
[2019-09-09] MEDS: IPRATROPIUM/ALBUTEROL 0.5-2.5 MG/3 ML AMPUL NEB SCH (19:54)
[2019-09-09] MEDS: LORATADINE 10 MG TABLET PO SCH (21:25)
[2019-09-09] MEDS: PAROXETINE HCL 20 MG TABLET PO SCH (21:25)
[2019-09-09] MEDS: FAMOTIDINE 20 MG TABLET PO SCH (21:25)
[2019-09-09] MEDS: AMLODIPINE BESYLATE 10 MG TABLET PO SCH (21:26)
[2019-09-09] MEDS: ATORVASTATIN CALCIUM 20 MG TABLET PO SCH (21:26)
[2019-09-09] MEDS: ISOSORBIDE MONONITRATE 30 MG TAB.ER.24H PO SCH (21:27)
[2019-09-09] MEDS: HYDRALAZINE HCL 50 MG TABLET PO SCH (21:28)
[2019-09-09] MEDS: ENOXAPARIN SODIUM INJ 30 MG/0.3 ML DISP.SYRIN SUBCUT SCH (21:28)
[2019-09-09] MEDS: ROPINIROLE HCL 1 MG TABLET PO SCH (21:35)
[2019-09-09] MEDS: INSULIN LISPRO 100 UNIT/ML 3 ML VIAL SUBCUT SCH (22:00)
[2019-09-09] MEDS ORDERED: PAROXETINE HCL 5 MG PO SCH (22:00)
[2019-09-09] MEDS ORDERED: FAMOTIDINE 20 MG TABLET PO SCH (22:00)
[2019-09-09] MEDS ORDERED: LORAZEPAM INJ 2 MG/1 ML VIAL IV PRN (23:43)
[2019-09-10] MEDS: FUROSEMIDE INJ/PF 40 MG/4 ML SDV IV SCH ×4 (01:30→19:20)
[2019-09-10] MEDS: ONDANSETRON HCL INJ/PF 4 MG/2 ML SDV IV PRN ×2 (05:10→12:10)
[2019-09-10] MEDS: LEVOTHYROXINE SODIUM 0.025 MG TABLET PO SCH (05:24)
[2019-09-10] MEDS: ACETAMINOPHEN 325 MG TABLET PO PRN ×2 (05:24→21:32)
[2019-09-10 05:42] LABS: ABSOLUTE BASOPHILS # (AUTO) 0.1 10^3/uL (0.0-0.2); ABSOLUTE EOSINOPHILS # (AUTO) 0.1 10^3/uL (0.0-0.6); ABSOLUTE LYMPHOCYTES (AUTO) 1.3 10^3/uL (0.5-4.7); ABSOLUTE MONOCYTES (AUTO) 0.9 10^3/uL (0.1-1.4); BASOPHILS % (AUTO) 0.9 % (0-2); EOSINOPHILS % (AUTO) 0.8 % (0-6); HEMATOCRIT 24.1 % (36.0-47.0); HEMOGLOBIN 8.2 g/dL (12.0-15.5); LYMPHOCYTES % (AUTO) 14.1 % (13-45); MEAN CORPUSCULAR HEMOGLOBIN 32.3 pg (27.0-33.4); MEAN CORPUSCULAR HGB CONC 33.9 g/dL (32.0-36.0); MEAN CORPUSCULAR VOLUME 95 fl (80-97); MONOCYTES % (AUTO) 9.3 % (3-13); PLATELET COUNT 154 10^3/uL (150-450); RED BLOOD COUNT 2.53 10^6/uL (3.72-5.28); RED CELL DISTRIBUTION WIDTH 13.2 % (11.5-14.0); SEGMENTED NEUTROPHILS % (AUTO) 74.9 % (42-78); TOTAL CELLS COUNTED % (AUTO) 100 %; WHITE BLOOD COUNT 9.3 10^3/uL (4.0-10.5)
[2019-09-10 05:50] LABS: INTERNATIONAL RATION (INR) 1.11; PROTHROMBIN TIME 14.5 SEC (11.4-15.4)
[2019-09-10 06:17] LABS: ALBUMIN 3.8 g/dL (3.5-5.0); ALKALINE PHOSPHATASE 55 U/L (38-126); ANION GAP 14 (5-19); ASPARTATE AMINO TRANSFERASE 25 U/L (14-36); BILIRUBIN,DIRECT 0.2 mg/dL (0.0-0.4); BILIRUBIN,TOTAL 0.5 mg/dL (0.2-1.3); BLOOD UREA NITROGEN 103 mg/dL (7-20); CALCIUM 9.6 mg/dL (8.4-10.2); CARBON DIOXIDE 21 mmol/L (22-30); CHLORIDE 101 mmol/L (98-107); GLUCOSE 105 mg/dL (75-110); PHOSPHORUS 6.8 mg/dL (2.5-4.5); POTASSIUM 5.2 mmol/L (3.6-5.0); TOTAL PROTEIN 7.1 g/dL (6.3-8.2)
[2019-09-10] MEDS ORDERED: (PENDING PHARMACY ID) (Sevelamer Carbonate [Renvela] 800 MG) PO SCH (08:00)
[2019-09-10] MEDS: IPRATROPIUM/ALBUTEROL 0.5-2.5 MG/3 ML AMPUL NEB SCH ×3 (08:21→20:43)
[2019-09-10] MEDS: INSULIN LISPRO 100 UNIT/ML 3 ML VIAL SUBCUT SCH ×4 (08:40→21:25)
[2019-09-10] MEDS: SEVELAMER HCL 800 MG TABLET PO SCH ×3 (08:42→17:45)
[2019-09-10] MEDS ORDERED: (PENDING PHARMACY ID) (Losartan Potassium [Losartan Potassium] 100 MG) PO SCH (10:00)
[2019-09-10] MEDS ORDERED: (PENDING PHARMACY ID) (Cholecalciferol (Vitamin D3) [Vitamin D3] 125 MCG) PO SCH (10:00)
[2019-09-10] MEDS ORDERED: MAGNESIUM OXIDE 400 MG TABLET PO SCH (10:00)
[2019-09-10] MEDS ORDERED: TUBERCULIN,PURIF.PROT.DERIV. 5 TU/0.1 ML TEST 1 ML VIAL ID ONE ×2 (10:15→12:00)
[2019-09-10] MEDS ORDERED: EPOETIN ALFA-EPBX 30,000 UNIT in SYRINGE, DISPOSABLE, 1 EACH IV PRN (10:15)
[2019-09-10] MEDS ORDERED: NORMAL SALINE 1000 ML 1,000 ML IV PRN (10:15)
--- NOTE | 2019-09-10 12:14 | PDOC CONSULTATION ---
Consultation Consult Date: 09/10/19 Provider Consulted: JOSLYN REYNOLDS Consult reason:: Uremia, ESRD History of Present Illness Admission Date/PCP: 09/09/19 17:27 LUCRETIA ROLDAN History of Present Illness: RAHUL ORTIZ is a 83 year old female known to me with history of end-stage renal disease not yet on dialysis, diabetes mellitus type 2, hypertension, congestive heart failure, hypothyroidism and history of bradyarrhythmia status post pacemaker placement who presented yesterday to the emergency room brought by the EMS because of shortness of breath, nausea and vomiting. Patient's daughter is at bedside to add up to the patient's history. Apparently last Sunday, 2 days ago she started having shortness of breath. The daughter checked her oxygen it was 70% so she put on her own oxygen to her mom. Yesterday she was too weak and she was having dry heaves which lasted for a longer time more than usual so they called the EMS. When the EMS was in their home they called me because the p atient is refusing to go to the emergency room for fear of COVID 19 infection. So I talked with the patient and since I noted the patient is really at end- stage renal disease for quite a while and has just been declining to start dialysis as an outpatient, I noted her symptoms is most likely due to uremia. She had a blood test that was done on September 03 at 2020 for her follow-up visit with me tomorrow and that showed a BUN of 81, creatinine of 6.49 with GFR of 6, previously in February 2019 she had a BUN of 85, creatinine of 5.63 and EGFR of 7. Patient then agreed to be brought to the emergency room. In addition the daughter said that the patient had been having poor appetite for the last couple of days. She otherwise denies any chest pains, confusion, tremors nor leg swelling. In the emergency room yesterday she had a BUN of 98, creatinine of 6.96, EGFR of 6, potassium of 5.2 and hemoglobin of 8.2. Her chest x-ray showed vascular congestion and bilateral pleural effusion. When I saw her this morning she said she feels "crap". I was told that she was refusing to wear the BiPAP so she is maintained on nasal cannula. I then discussed with her and the daughter at bedside that this is the time that she would need to be started on dialysis for which she has a right arm AV fistula ready to be used for a here now. They both agreed to proceed with dialysis. 11:30 AM. I am seeing the patient on dialysis now with her first treatment. Our dialysis nurse has cannulated her AV fistula but is having a little bit of a difficulty at this time. Organ to keep trying and see if her AV fistula can be used otherwise he might need to do a temporary dialysis catheter and have the archibald rgeon look at her fistula to see if she needs any angioplasty. Her oxygen saturation is also been going down so we need to put her on nonrebreather mask at 15 L. She is going to be monitored continuously and will adjust treatment appropriately. Past Medical History Cardiac Medical History: Reports: CHF-Diastolic, Hyperlipidemia, Hypertension- primary, Other - Bradyarrhythmia EENT Medical History: Reports: Eyes - Legally blind in the right eye Neurological Medical History: Reports: Other - TIA Endocrine Medical History: Reports: Diabetes Mellitus Type 2, Hypothyroidism Complications of Diabetes: Reports: Autonomic Neuropathy, Nephropathy, Retinopathy Renal/ Medical History: Reports: End Stage Renal Disease, Hyperkalemia, Hy perphosphatemia, Proteinuria, Renal Osteodystropy, Secondary Hyperparathyroidism GI Medical History: Reports: Gastroesophageal Reflux Disease, Peptic Ulcer Disease Musculoskeltal Medical History: Reports: Arthritis Hematology Medical History: Reports Anemia of Chronic Kidney Disease Past Surgical History Past Surgical History: Reports: Dialysis Access Surgery AVF - Right arm, by Dr. Rodgers, Pacemaker - Bilateral cataract extraction, refractive surgery, Tonsillectomy Social History Information Source: Patient, Relative Lives with: Family - With daughter Smoking Status: Never Smoker Frequency of Alcohol Use: None Family History Family History: DM - Brother, End Stage Renal Disease - Brother on dialysis, Malignancy - Ovarian cancer in his her sister and pancreatic cancer in her brother, Other - Nephrolithiasis in her father Parental Family History Reviewed: Yes Children Family History Reviewed: Yes Sibling(s) Family History Reviewed.: Yes Medication/Allergy Home Medications: Amlodipine Besylate [Norvasc 10 mg Tablet] 10 mg PO QHS 09/09/19 Atorvastatin Calcium [Lipitor 20 mg Tablet] 20 mg PO QHS 09/09/19 Calcitriol [Rocaltrol 0.25 Mcg Capsule] 1 cap PO DAILY 09/09/19 Cholecalciferol (Vitamin D3) [Vitamin D3] 125 mcg PO DAILY 09/09/19 Ferrous Sulfate [Feosol 325 mg Tablet] 325 mg PO DAILY 09/09/19 Furosemide [Lasix 80 mg Tablet] 40 mg PO DAILY 09/09/19 Hydralazine HCl [Apresoline 50 mg Tablet] 50 mg PO Q12 09/09/19 Insulin Glargine,Hum.rec.anlog [Lantus Insulin 100 Unit/mL Insulin Pen] 15 unit SUBCUT DAILY 09/09/19 Isosorbide Mononitrate [Imdur 30 mg Tablet.er] 30 mg PO Q12 09/09/19 Levothyroxine Sodium [Synthroid 0.025 mg Tablet] 37 mcg PO DAILY 09/09/19 Loratadine [Claritin 10 mg Tablet] 10 mg PO QHS 09/09/19 Losartan Potassium 100 mg PO DAILY 09/09/19 Magnesium Oxide [Mag-Ox 400 mg Tablet] 400 mg PO DAILY 09/09/19 Paroxetine HCl [Paxil] 5 mg PO QHS 09/09/19 Ropinirole HCl 0.5 mg PO QPM 09/09/19 Sevelamer Carbonate [Renvela] 800 mg PO MEALS 09/09/19 Allergies/Adverse Reactions: metoprolol succinate [From Toprol XL] Allergy (Verified 09/09/19 15:42) Penicillins Allergy (Verified 09/09/19 15:42) Review of Systems All systems: reviewed and no additional remarkable complaints except as stated Review of Systems: Constitutional: ABSENT: chills, fever(s), headache(s), weight gain, weight loss; reports feeling poorly, fatigue Eyes: ABSENT: visual disturbances Ears: ABSENT: hearing changes Cardiovascular: ABSENT: chest pain, dyspnea on exertion, edema, orthropnea, palpitations; admits feeling shortness of breath Respiratory: ABSENT: cough, dyspnea, hemoptysis Gastrointestinal: ABSENT: abdominal pain, constipation, diarrhea, hematemesis, hematochezia admits nausea Genitourinary: ABSENT: dysuria, hematuria Musculoskeletal: ABSENT: joint swelling Integumentary: ABSENT: rash, wounds Neurological: ABSENT: abnormal gait, abnormal speech, confusion, dizziness, focal weakness, numbness, syncope Psychiatric: ABSENT: anxiety, depression Endocrine: ABSENT: cold intolerance, heat intolerance, polydipsia, polyuria Hematologic/Lymphatic: ABSENT: easy bleeding, easy bruising, lymphadenopathy Physical Exam Vital Signs: Temp Pulse Resp BP Pulse Ox 97.5 F 66 16 121/81 88 L 09/10/19 08:24 09/10/19 08:24 09/10/19 08:24 09/10/19 08:24 09/10/19 08:24 Intake & Output 09/09/19 09/10/19 09/11/19 06:59 06:59 06:59 Output Total 400 Balance -400 Weight 59 kg Vitals during initiation of dialysis today: Blood pressure 128/48, heart rate of 60, blood flow rate at 200 mL/min and dialysate flow rate of 600 mL/min. Currently on nonrebreather mask at 15 L. Exam: General appearance: Currently requiring nonrebreather mask. Head exam: PRESENT: atraumatic, normocephalic, her face is slightly swollen from her baseline Eye exam: PRESENT: Conjunctiva pale, EOMI, PERRLA. ABSENT: conjunctival injection, scleral icterus Mouth exam: PRESENT: moist, neck supple, tongue midline Neck exam: PRESENT: full ROM. ABSENT: carotid bruit, JVD, lymphadenopathy, thyromegaly Respiratory exam: PRESENT: Coarse breath sounds to auscultation bilaterally. ABSENT: rales, rhonchi, stridor, wheezes Cardiovascular exam: PRESENT: RRR, +S1, +S2. ABSENT: systolic murmur Pulses: PRESENT: normal radial pulses, normal dorsalis pedis pulses GI/Abdominal exam: PRESENT: normal bowel sounds, soft. ABSENT: guarding, mass, tenderness Rectal exam: Deferred Extremities exam: PRESENT: full ROM. Right arm AV fistula with good bruit and thrill ABSENT: calf tenderness, pedal edema Musculoskeletal: PRESENT: full ROM. ABSENT: deformity Neurological exam: PRESENT: alert, Awake, Oriented to person, Oriented to place, Oriented to time, reflexes normal, CN II-XII grossly intact. ABSENT: motor sensory deficit Psychiatric exam: PRESENT: appropriate affect, normal mood. ABSENT: homicidal ideation, suicidal ideation Skin exam: PRESENT: intact, dry, warm. ABSENT: rash Results Laboratory Results: 09/10/19 05:05 09/10/19 05:05 09/09/19 09/09/19 09/09/19 15:29 15:29 16:51 WBC 8.8 RBC 2.61 L Hgb 8.4 L Hct 25.1 L MCV 96 MCH 32.1 MCHC 33.3 RDW 13.1 Plt Count 171 Seg Neutrophils % 78.3 H VBG pH 7.34 VBG pCO2 41.7 VBG HCO3 22.1 VBG Base Excess -3.4 Sodium 136.2 L Potassium 5.7 H Chloride 101 Carbon Dioxide 22 Anion Gap 13 BUN 98 H Creatinine 6.99 H Est GFR ( Amer) 7 L Glucose 124 H Calcium 9.9 Phosphorus Magnesium Total Bilirubin 0.6 AST 26 Alkaline Phosphatase 58 Total Protein 7.6 Albumin 4.3 Urine Color Urine Appearance Urine pH Ur Specific [place] Urine Protein Urine Glucose (UA) Urine Ketones Urine Blood Urine Nitrite Ur Leukocyte Esterase Urine WBC (Auto) Urine RBC (Auto) 09/09/19 09/10/19 09/10/19 18:15 05:05 05:05 WBC 9.3 RBC 2.53 L Hgb 8.2 L Hct 24.1 L MCV 95 MCH 32.3 MCHC 33.9 RDW 13.2 Plt Count 154 Seg Neutrophils % 74.9 VBG pH VBG pCO2 VBG HCO3 VBG Base Excess Sodium 135.8 L Potassium 5.2 H Chloride 101 Carbon Dioxide 21 L Anion Gap 14 BUN 103 H Creatinine 6.96 H Est GFR ( Amer) 7 L Glucose 105 Calcium 9.6 Phosphorus 6.8 H Magnesium 3.1 H Total Bilirubin 0.5 AST 25 Alkaline Phosphatase 55 Total Protein 7.1 Albumin 3.8 Urine Color YELLOW Urine Appearance SLIGHTLY-CLOUDY Urine pH 5.0 Ur Specific [place] 1.013 Urine Protein >=500 H Urine Glucose (UA) NEGATIVE Urine Ketones NEGATIVE Urine Blood NEGATIVE Urine Nitrite NEGATIVE Ur Leukocyte Esterase NEGATIVE Urine WBC (Auto) 2 Urine RBC (Auto) 0 09/09/19 09/09/19 09/09/19 15:29 15:29 20:45 Creatine Kinase 114 CK-MB (CK-2) 6.25 H Troponin I 3.330 3.870 NT-Pro-B Natriuret Pep [id number] H Impressions: Chest X-Ray 09/09/19 15:41 IMPRESSION: CHF. Assessment & Plan - Diagnosis (1) Acute respiratory failure with hypoxia Is this a current diagnosis for this admission?: Yes Plan: Patient has acute pulmonary vascular congestion most likely secondary to uremia and ESRD that would require ultrafiltration. Maintain oxygen support as necessary per hospitalist service. I will also try to get ultrafiltration during dialysis. (2) Acute CHF Qualifiers: Heart failure type: diastolic Qualified Code(s): I50.31 - Acute diastolic (congestive) heart failure Is this a current diagnosis for this admission?: Yes Plan: Acute pulmonary congestion secondary to ESRD requiring dialysis now. (3) Uremia Is this a current diagnosis for this admission?: Yes Plan: Patient's presenting symptoms including nausea, feeling poorly, poor appetite and acute pulmonary congestion all points to uremia needing to be initiated for renal replacement therapy. (4) ESRD needing dialysis Is this a current diagnosis for this admission?: Yes Plan: Due to diabetic nephropathy and hypertensive nephrosclerosis associated with nephrotic range proteinuria now requiring initiation of renal replacement therapy due to anemia and urinary congestion. We will do dialysis today for 2.5 hours, using the patient's AV fistula, with 2 potassium bath, blood flow rate of 250 mL per minute, dialysate flow rate of 600 mL per minute, ultrafiltration 2 to 2.5 L as tolerated, no heparin and Procrit with 30,000 units during dialysis intravenously. Patient will be monitored very closely during dialysis treatment. If her AV fistula is malfunctioning and not working properly, we might need to do a temporary dialysis catheter but hopefully not. We will arrange to have outpatient dialysis at [facility] after discharge. (5) Hyperkalemia Is this a current diagnosis for this admission?: Yes Plan: Patient were given anti-potassium cocktail yesterday. Dialysis today. (6) Anemia in chronic kidney disease (CKD) Qualifiers: Chronic kidney disease stage: on chronic dialysis Qualified Code(s): N18.6 - End stage renal disease; D63.1 - Anemia in chronic kidney disease; Z99.2 - Dependence on renal dialysis Is this a current diagnosis for this admission?: Yes Plan: We will give Retacrit during dialysis treatment. Recent iron on September 03 showed a T sat of 22 and ferritin of 140. Check stool for occult blood. (7) Diabetes mellitus type 2 in nonobese Is this a current diagnosis for this admission?: Yes Plan: Controlled. (8) Chronic kidney disease-mineral and bone disorder Is this a current diagnosis for this admission?: Yes Plan: Her phosphorus is 6.8 and PTH of 100.6. Patient has been taking on calcitriol, vitamin D 3 and now Renvela. (9) Hypermagnesemia Is this a current diagnosis for this admission?: Yes Plan: Due to ESRD. Discontinue magnesium supplement. (10) Hypertension Is this a current diagnosis for this admission?: Yes Plan: Controlled. - Notes Notes: Thank you very much for this consultation. I will follow the patient with you. - Time Time Spent: Greater than 70 Minutes
[2019-09-10] MEDS: INSULIN GLARGINE,HUM.REC.ANLOG 1,000 UNIT/10 ML VIAL SUBCUT SCH (15:37)
[2019-09-10] MEDS: HYDRALAZINE HCL 50 MG TABLET PO SCH ×2 (15:42→21:31)
[2019-09-10] MEDS: ISOSORBIDE MONONITRATE 30 MG TAB.ER.24H PO SCH ×2 (15:43→21:32)
[2019-09-10] MEDS: FERROUS SULFATE 325 MG TABLET PO SCH (15:50)
[2019-09-10] MEDS: CHOLECALCIFEROL (D3) 1,000 UNIT (25 MCG) TABLET PO SCH (15:51)
[2019-09-10] MEDS: CALCITRIOL 0.25 MCG CAPSULE PO SCH (15:52)
[2019-09-10] MEDS: LOSARTAN POTASSIUM 50 MG TABLET PO SCH (15:52)
[2019-09-10] MEDS: DOCUSATE SODIUM 100 MG/10 ML UDC PO SCH (15:53)
[2019-09-10] MEDS: PATIROMER 8.4 GM SUSP PACKET PO SCH (17:37)
[2019-09-10] MEDS: ROPINIROLE HCL 1 MG TABLET PO SCH (17:45)
--- NOTE | 2019-09-10 19:03 | PDOC PROGRESS REPORT ---
Subjective Progress Note for:: 09/10/19 Subjective:: Patient denies shortness of breath. She states that overall she feels better than she did this morning Reason For Visit: ESRD,HYPERKALEMIA,VOLUME OVERLOAD Physical Exam Vital Signs: Temp Pulse Resp BP Pulse Ox 97.5 F 63 16 121/81 88 L 09/10/19 08:24 09/10/19 14:00 09/10/19 08:24 09/10/19 08:24 09/10/19 08:24 Intake & Output 09/09/19 09/10/19 09/11/19 06:59 06:59 06:59 Output Total 400 2600 Balance -400 -2600 Weight 59 kg General appearance: PRESENT: no acute distress, cooperative, well-developed Head exam: PRESENT: atraumatic, normocephalic Eye exam: PRESENT: conjunctiva pale Mouth exam: PRESENT: moist, tongue midline Neck exam: ABSENT: JVD Respiratory exam: PRESENT: decreased breath sounds - There entry diminished at bases bilaterally, symmetrical, unlabored, other - Sounds coarse bilaterally over all lung ferguson. ABSENT: accessory muscle use, rales, rhonchi, wheezes Cardiovascular exam: PRESENT: RRR, +S1, +S2 Pulses: PRESENT: normal carotid pulses Vascular exam: PRESENT: normal capillary refill GI/Abdominal exam: PRESENT: normal bowel sounds, soft. ABSENT: distended, tenderness Rectal exam: PRESENT: deferred Extremities exam: ABSENT: calf tenderness Neurological exam: PRESENT: alert, awake, oriented to person, oriented to place, oriented to time, oriented to situation, CN II-XII grossly intact Psychiatric exam: PRESENT: appropriate affect, normal mood. ABSENT: agitated, anxious Skin exam: PRESENT: dry, normal color, warm Results Laboratory Results: 09/10/19 05:05 09/10/19 05:05 09/10/19 09/10/19 05:05 05:05 WBC 9.3 RBC 2.53 L Hgb 8.2 L Hct 24.1 L MCV 95 MCH 32.3 MCHC 33.9 RDW 13.2 Plt Count 154 Seg Neutrophils % 74.9 Sodium 135.8 L Potassium 5.2 H Chloride 101 Carbon Dioxide 21 L Anion Gap 14 BUN 103 H Creatinine 6.96 H Est GFR ( Amer) 7 L Glucose 105 Calcium 9.6 Phosphorus 6.8 H Magnesium 3.1 H Total Bilirubin 0.5 AST 25 Alkaline Phosphatase 55 Total Protein 7.1 Albumin 3.8 09/09/19 09/09/19 09/09/19 15:29 15:29 20:45 Creatine Kinase 114 CK-MB (CK-2) 6.25 H Troponin I 3.330 3.870 NT-Pro-B Natriuret Pep [id number] H Impressions: Chest X-Ray 09/09/19 15:41 IMPRESSION: CHF. Assessment and Plan - Diagnosis (1) Acute respiratory failure with hypoxia Is this a current diagnosis for this admission?: Yes Plan: Patient's respiratory failure and hypoxia likely related to volume overload Patient received HD today Patient's FiO2 was able to be weaned throughout the course of today but she is currently on 6 L nasal cannula Continue albuterol/ipratropium nebs every 6 hours (2) Acute CHF Qualifiers: Heart failure type: systolic Qualified Code(s): I50.21 - Acute systolic (congestive) heart failure Is this a current diagnosis for this admission?: Yes Plan: Patient received HD today Continue ARB and hydralazine Patient's heart rate is borderline for the addition of beta-gali (3) ESRD needing dialysis Is this a current diagnosis for this admission?: Yes Plan: HD today Patient will need to be set up with an outpatient HD chair (4) Uremia Is this a current diagnosis for this admission?: Yes Plan: Patient received HD today, defer to nephrology whether she needs to have an additional FLIGHT NURSE prior to discharge (5) Hyperkalemia Is this a current diagnosis for this admission?: Yes Plan: No EKG changes noted Patient had HD today Monitor (6) Anemia of chronic disease Is this a current diagnosis for this admission?: Yes Plan: No signs of active hemorrhage Likely a dilutional component in H/H Continue erythropoietin 30,000 units after HD Continue ferrous sulfate 325 mg p.o. daily Transfuse for Hgb < 7.0 (7) Hypertension Is this a current diagnosis for this admission?: Yes Plan: Continue amlodipine 10 mg p.o. daily at at bedtime Continue hydralazine 50 mg p.o. every 12 hours Continue isosorbide mononitrate 30 mg p.o. every 12 hours Continue losartan 100 mg p.o. daily (8) Dyslipidemia Is this a current diagnosis for this admission?: Yes Plan: Continue atorvastatin 20 mg p.o. daily at bedtime (9) Diabetes mellitus type 2 in nonobese Is this a current diagnosis for this admission?: Yes Plan: Continue FS BS with SSI correction scale (10) Hypothyroidism Is this a current diagnosis for this admission?: Yes Plan: Continue levothyroxine 0.037 mg p.o. daily (11) Restless leg syndrome Is this a current diagnosis for this admission?: Yes Plan: Continue ropinirole 1 mg p.o. daily (12) Depression Is this a current diagnosis for this admission?: Yes Plan: Continue paroxetine 5 mg p.o. daily - Time Time Spent with patient: 25-34 minutes Medications reviewed and adjusted accordingly: Yes Anticipated Discharge Disposition: Home, Self Care Anticipated Discharge Timeframe: within 48 hours
[2019-09-10] MEDS: FAMOTIDINE 20 MG TABLET PO SCH (21:29)
[2019-09-10] MEDS: AMLODIPINE BESYLATE 10 MG TABLET PO SCH (21:32)
[2019-09-10] MEDS: ATORVASTATIN CALCIUM 20 MG TABLET PO SCH (21:32)
[2019-09-10] MEDS: PAROXETINE HCL 20 MG TABLET PO SCH (21:33)
[2019-09-10] MEDS: LORATADINE 10 MG TABLET PO SCH (21:35)
[2019-09-10] MEDS: ENOXAPARIN SODIUM INJ 30 MG/0.3 ML DISP.SYRIN SUBCUT SCH (21:36)
[2019-09-11] MEDS ORDERED: PATIROMER 8.4 GM SUSP PACKET ONE (05:44)
[2019-09-11] MEDS: LEVOTHYROXINE SODIUM 0.025 MG TABLET PO SCH (05:54)
[2019-09-11] MEDS: FUROSEMIDE 40 MG TABLET PO SCH ×3 (05:56→22:02)
[2019-09-11] MEDS ORDERED: PATIROMER 8.4 GM SUSP PACKET PO SCH (06:00)
[2019-09-11 06:37] LABS: HEPATITS B SURFACE ANTIGEN Negative (Negative)
[2019-09-11 06:50] LABS: ABSOLUTE BASOPHILS # (AUTO) 0.1 10^3/uL (0.0-0.2); ABSOLUTE EOSINOPHILS # (AUTO) 0.3 10^3/uL (0.0-0.6); ABSOLUTE LYMPHOCYTES (AUTO) 1.7 10^3/uL (0.5-4.7); ABSOLUTE MONOCYTES (AUTO) 0.9 10^3/uL (0.1-1.4); ABSOLUTE NEUT (AUTO) 5.6 10^3/uL (1.7-8.2); ABSOLUTE RETICS # 0.044 10^6/uL (0.028-0.122); BASOPHILS % (AUTO) 1.1 % (0-2); EOSINOPHILS % (AUTO) 3.9 % (0-6); HEMATOCRIT 24.7 % (36.0-47.0); HEMOGLOBIN 8.3 g/dL (12.0-15.5); LYMPHOCYTES % (AUTO) 19.3 % (13-45); MEAN CORPUSCULAR HGB CONC 33.5 g/dL (32.0-36.0); MEAN CORPUSCULAR VOLUME 96 fl (80-97); MONOCYTES % (AUTO) 10.1 % (3-13); PLATELET COUNT 158 10^3/uL (150-450); RED BLOOD COUNT 2.59 10^6/uL (3.72-5.28); RED CELL DISTRIBUTION WIDTH 13.1 % (11.5-14.0); RETICULOCYTE COUNT (AUTO) 1.72 % (0.66-2.85); SEGMENTED NEUTROPHILS % (AUTO) 65.6 % (42-78); TOTAL CELLS COUNTED % (AUTO) 100 %; WHITE BLOOD COUNT 8.6 10^3/uL (4.0-10.5)
[2019-09-11 07:01] LABS: HEPATITIS B CORE AB TOT Negative (Negative)
[2019-09-11 07:12] LABS: ANION GAP 8 (5-19); BLOOD UREA NITROGEN 60 mg/dL (7-20); CARBON DIOXIDE 29 mmol/L (22-30); CHLORIDE 98 mmol/L (98-107); GLUCOSE 90 mg/dL (75-110); IRON(TIBC) 22.5 ug/dL (37-170); POTASSIUM 4.6 mmol/L (3.6-5.0)
[2019-09-11] MEDS: IPRATROPIUM/ALBUTEROL 0.5-2.5 MG/3 ML AMPUL NEB SCH ×3 (07:33→20:24)
[2019-09-11 08:18] LABS: FOLATE 4.85 ng/mL (>2.76)
[2019-09-11] MEDS: INSULIN LISPRO 100 UNIT/ML 3 ML VIAL SUBCUT SCH ×4 (09:54→22:00)
[2019-09-11] MEDS: PATIROMER 8.4 GM SUSP PACKET PO SCH (09:55)
[2019-09-11] MEDS: SEVELAMER HCL 800 MG TABLET PO SCH ×3 (09:55→17:25)
[2019-09-11] MEDS: INSULIN GLARGINE,HUM.REC.ANLOG 1,000 UNIT/10 ML VIAL SUBCUT SCH (09:56)
[2019-09-11] MEDS: DOCUSATE SODIUM 100 MG/10 ML UDC PO SCH (09:56)
[2019-09-11] MEDS: CALCITRIOL 0.25 MCG CAPSULE PO SCH (10:20)
[2019-09-11] MEDS: FERROUS SULFATE 325 MG TABLET PO SCH (10:20)
[2019-09-11] MEDS: CHOLECALCIFEROL (D3) 1,000 UNIT (25 MCG) TABLET PO SCH (10:20)
[2019-09-11] MEDS: HYDRALAZINE HCL 50 MG TABLET PO SCH ×2 (10:21→22:01)
[2019-09-11] MEDS: LOSARTAN POTASSIUM 50 MG TABLET PO SCH (10:24)
[2019-09-11] MEDS: ISOSORBIDE MONONITRATE 30 MG TAB.ER.24H PO SCH ×2 (10:24→22:03)
[2019-09-11] MEDS: ROPINIROLE HCL 1 MG TABLET PO SCH (17:25)
--- NOTE | 2019-09-11 17:53 | PDOC PROGRESS REPORT ---
Subjective Progress Note for:: 09/11/19 Subjective:: Patient confirms this a.m. that she wishes to be a DNR but does want to continue with hemodialysis. No specific complaints Reason For Visit: ESRD,HYPERKALEMIA,VOLUME OVERLOAD Physical Exam Vital Signs: Temp Pulse Resp BP Pulse Ox 97.8 F 60 16 130/37 H 93 09/11/19 15:20 09/11/19 15:20 09/11/19 15:20 09/11/19 15:20 09/11/19 15:20 Intake & Output 09/10/19 09/11/19 09/12/19 06:59 06:59 06:59 Output Total 400 2785 Balance -400 -2785 Weight 59 kg 59.9 kg General appearance: PRESENT: no acute distress, cooperative, well-developed Head exam: PRESENT: atraumatic, normocephalic Mouth exam: PRESENT: moist, tongue midline Neck exam: ABSENT: JVD Respiratory exam: PRESENT: decreased breath sounds - Entry diminished at bases bilaterally with coarse breath sounds throughout, symmetrical, unlabored. ABSENT: accessory muscle use, rales, rhonchi, wheezes Cardiovascular exam: PRESENT: RRR, +S1, +S2 Vascular exam: PRESENT: normal capillary refill GI/Abdominal exam: PRESENT: normal bowel sounds, soft. ABSENT: distended, tenderness Rectal exam: PRESENT: deferred Extremities exam: ABSENT: calf tenderness, pedal edema Neurological exam: PRESENT: alert, awake, oriented to person, oriented to place, oriented to time, oriented to situation Psychiatric exam: PRESENT: appropriate affect, normal mood. ABSENT: agitated, anxious Skin exam: PRESENT: dry, normal color, warm Results Laboratory Results: 09/11/19 06:14 09/11/19 06:14 09/11/19 09/11/19 06:14 06:14 WBC 8.6 RBC 2.59 L Hgb 8.3 L Hct 24.7 L MCV 96 MCH 32.0 MCHC 33.5 RDW 13.1 Plt Count 158 Seg Neutrophils % 65.6 Retic Count (auto) 1.72 Sodium 134.9 L Potassium 4.6 Chloride 98 Carbon Dioxide 29 Anion Gap 8 BUN 60 H Creatinine 5.04 H Est GFR ( Amer) 10 L Glucose 90 Calcium 9.0 Iron 22.5 L TIBC 230 L % Saturation 10 Ferritin 191.00 Vitamin B12 388.0 Folate 4.85 09/09/19 09/09/19 09/09/19 15:29 15:29 20:45 Creatine Kinase 114 CK-MB (CK-2) 6.25 H Troponin I 3.330 3.870 NT-Pro-B Natriuret Pep [id number] H Impressions: Chest X-Ray 09/09/19 15:41 IMPRESSION: CHF. Assessment and Plan - Diagnosis (1) Acute respiratory failure with hypoxia Is this a current diagnosis for this admission?: Yes Plan: Patient's respiratory failure and hypoxia likely related to volume overload She continues to require supplemental oxygen but slightly less this afternoon Continue to wean FiO2 as tolerated Continue albuterol/ipratropium nebs every 6 hours (2) Acute CHF Qualifiers: Heart failure type: systolic Qualified Code(s): I50.21 - Acute systolic (congestive) heart failure Is this a current diagnosis for this admission?: Yes Plan: Pat[facility] will have HD tomorrow Continue ARB and hydralazine Patient's heart rate remains borderline for the addition of beta-gali (3) ESRD needing dialysis Is this a current diagnosis for this admission?: Yes Plan: Continue sevelamer 800 mg p.o. 3 times daily with meals Continue calcitriol 0.25 mcg p.o. daily Spoke with endoscopy support specialist today and patient will have HD tomorrow Awaiting case management to secure outpatient dialysis chair (4) Uremia Is this a current diagnosis for this admission?: Yes Plan: For HD tomorrow (5) Hyperkalemia Is this a current diagnosis for this admission?: Yes Plan: Resolved Continue patiromer calcium sorbitex 8.4 gm po daily per renal Monitor (6) Anemia of chronic disease Is this a current diagnosis for this admission?: Yes Plan: No signs of active hemorrhage Likely a dilutional component in H/H Continue erythropoietin 30,000 units after HD Continue ferrous sulfate 325 mg p.o. daily Transfuse for Hgb < 7.0 (7) Hypertension Is this a current diagnosis for this admission?: Yes Plan: Patient's diastolic BP is low however she remains asymptomatic with an adequate MAP Continue amlodipine 10 mg p.o. daily at at bedtime Continue hydralazine 50 mg p.o. every 12 hours Continue isosorbide mononitrate 30 mg p.o. every 12 hours Decrease losartan to 50 mg p.o. daily (8) Dyslipidemia Is this a current diagnosis for this admission?: Yes Plan: Continue atorvastatin 20 mg p.o. daily at bedtime (9) Diabetes mellitus type 2 in nonobese Is this a current diagnosis for this admission?: Yes Plan: Continue FS BS with SSI correction scale (10) Hypothyroidism Is this a current diagnosis for this admission?: Yes Plan: Continue levothyroxine 0.037 mg p.o. daily (11) Restless leg syndrome Is this a current diagnosis for this admission?: Yes Plan: Continue ropinirole 1 mg p.o. daily (12) Depression Is this a current diagnosis for this admission?: Yes Plan: Continue paroxetine 5 mg p.o. daily - Time Time Spent with patient: 25-34 minutes Medications reviewed and adjusted accordingly: Yes Anticipated Discharge Disposition: Home, Self Care Anticipated Discharge Timeframe: When HD chair available
--- NOTE | 2019-09-11 21:30 | PDOC PROGRESS REPORT ---
Subjective Progress Note for:: 09/11/19 Subjective:: Patient states that she is feeling better and breathing better although she is is still desaturating. She does not want to wear the BiPAP at all. Today she does not seem to be as nauseated and has not had any vomiting. Appetite is still poor. She ate [employer] toast this morning. There was difficulty in getting an IV access and she has finally refuse after multiple attempts. She also indicated to the nurses and hospitalist earlier today that she wants to be a DNR and confirmed that today with her daughter at bedside. However she indicated that she will continue dialysis. Reason For Visit: ESRD,HYPERKALEMIA,VOLUME OVERLOAD Physical Exam Vital Signs: Temp Pulse Resp BP Pulse Ox 97.6 F 61 12 114/40 L 92 09/11/19 03:46 09/11/19 07:33 09/11/19 07:33 09/11/19 03:46 09/11/19 07:33 Intake & Output 09/10/19 09/11/19 09/12/19 06:59 06:59 06:59 Output Total 400 2785 Balance -400 -2785 Weight 59 kg 59.9 kg Exam: General appearance: PRESENT: no acute distress, cooperative, well-developed, well-nourished Head exam: PRESENT: atraumatic, normocephalic Eye exam: PRESENT: conjunctiva pale, PERRLA. ABSENT: scleral icterus Neck exam: ABSENT: JVD Respiratory exam: PRESENT: Diminished breath sounds. ABSENT: crackles, rales, rhonchi, unlabored, wheezes Cardiovascular exam: PRESENT: Regular rate rhythm -+S1, +S2. ABSENT: diastolic murmur, systolic murmur GI/Abdominal exam: PRESENT: normal bowel sounds, soft. ABSENT: guarding, mass, tenderness Extremities exam: ABSENT: No edema Neurological exam: PRESENT: alert, awake, oriented to person, place and time. Skin exam: PRESENT: dry, warm, Results Laboratory Results: 09/11/19 06:14 09/11/19 06:14 09/11/19 09/11/19 06:14 06:14 WBC 8.6 RBC 2.59 L Hgb 8.3 L Hct 24.7 L MCV 96 MCH 32.0 MCHC 33.5 RDW 13.1 Plt Count 158 Seg Neutrophils % 65.6 Retic Count (auto) 1.72 Sodium 134.9 L Potassium 4.6 Chloride 98 Carbon Dioxide 29 Anion Gap 8 BUN 60 H Creatinine 5.04 H Est GFR ( Amer) 10 L Glucose 90 Calcium 9.0 Iron 22.5 L TIBC 230 L % Saturation 10 Ferritin 191.00 Vitamin B12 388.0 Folate 4.85 09/09/19 09/09/19 09/09/19 15:29 15:29 20:45 Creatine Kinase 114 CK-MB (CK-2) 6.25 H Troponin I 3.330 3.870 NT-Pro-B Natriuret Pep 77768 H Impressions: Chest X-Ray 09/09/19 15:41 IMPRESSION: CHF. Assessment & Plan - Diagnosis (1) Acute respiratory failure with hypoxia Is this a current diagnosis for this admission?: Yes Plan: Due to acute pulmonary congestion with worsening kidney function. Slightly improved after the first dialysis treatment yesterday. However she continues to have some oxygen desaturation. Continues to refuse BiPAP. Seems comfortable on nasal cannula though. (2) Acute CHF Qualifiers: Heart failure type: systolic Qualified Code(s): I50.21 - Acute systolic (congestive) heart failure Is this a current diagnosis for this admission?: Yes Plan: Due to worsening ESRD. (3) Uremia Is this a current diagnosis for this admission?: Yes Plan: Slightly improved from yesterday. 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 We will arrange for chronic outpatient dialysis treatment at [facility], caseworker working on it. Plan for next dialysis tomorrow. (5) Hyperkalemia Is this a current diagnosis for this admission?: Yes Plan: Resolved with dialysis. (6) Anemia in chronic kidney disease (CKD) Qualifiers: Chronic kidney disease stage: on chronic dialysis Qualified Code(s): N18.6 - End stage renal disease; D63.1 - Anemia in chronic kidney disease; Z99.2 - Dependence on renal dialysis Is this a current diagnosis for this admission?: Yes Plan: Repeat iron studies here showed an iron of 22.5, T sat of only 10 and ferritin of 191. I will give both retrograde and Venofer during dialysis treatment. (7) Diabetes mellitus type 2 in nonobese Is this a current diagnosis for this admission?: Yes Plan: Controlled. (8) Chronic kidney disease-mineral and bone disorder Is this a current diagnosis for this admission?: Yes Plan: On calcitriol, vitamin D and Renvela. (9) Hypermagnesemia Is this a current diagnosis for this admission?: Yes Plan: Due to ESRD. Recheck magnesium. (10) Hypertension Is this a current diagnosis for this admission?: Yes Plan: Controlled. - Time Time with patient: 15-25 minutes
[2019-09-11] MEDS: ENOXAPARIN SODIUM INJ 30 MG/0.3 ML DISP.SYRIN SUBCUT SCH (22:00)
[2019-09-11] MEDS: ATORVASTATIN CALCIUM 20 MG TABLET PO SCH (22:01)
[2019-09-11] MEDS: LORATADINE 10 MG TABLET PO SCH (22:02)
[2019-09-11] MEDS: PAROXETINE HCL 20 MG TABLET PO SCH (22:03)
[2019-09-11] MEDS: AMLODIPINE BESYLATE 10 MG TABLET PO SCH (22:04)
[2019-09-11] MEDS: FAMOTIDINE 20 MG TABLET PO SCH (22:04)
[2019-09-12 00:36] LABS: HEPATITIS C QUANTITATION HCV Not Detected IU/mL (.)
[2019-09-12] MEDS ORDERED: EPOETIN ALFA-EPBX 30,000 UNIT in SYRINGE, DISPOSABLE, 1 EACH IV PRN (05:00)
[2019-09-12] MEDS ORDERED: IRON SUCROSE COMPLEX INJ/PF 100 MG/5 ML SDV IV PRN (05:00)
[2019-09-12] MEDS ORDERED: NORMAL SALINE 1000 ML 1,000 ML IV PRN (05:00)
[2019-09-12] MEDS: LEVOTHYROXINE SODIUM 0.025 MG TABLET PO SCH (05:35)
[2019-09-12] MEDS: FUROSEMIDE 40 MG TABLET PO SCH (05:36)
[2019-09-12 06:15] LABS: HEMATOCRIT 24.7 % (36.0-47.0); HEMOGLOBIN 8.4 g/dL (12.0-15.5); MEAN CORPUSCULAR HEMOGLOBIN 32.2 pg (27.0-33.4); MEAN CORPUSCULAR HGB CONC 33.9 g/dL (32.0-36.0); MEAN CORPUSCULAR VOLUME 95 fl (80-97); PLATELET COUNT 162 10^3/uL (150-450); RED CELL DISTRIBUTION WIDTH 13.6 % (11.5-14.0); WHITE BLOOD COUNT 7.9 10^3/uL (4.0-10.5)
[2019-09-12 06:42] LABS: ANION GAP 11 (5-19); BLOOD UREA NITROGEN 69 mg/dL (7-20); CALCIUM 9.2 mg/dL (8.4-10.2); CARBON DIOXIDE 26 mmol/L (22-30); CHLORIDE 97 mmol/L (98-107); GLUCOSE 101 mg/dL (75-110); PHOSPHORUS 5.1 mg/dL (2.5-4.5); POTASSIUM 4.8 mmol/L (3.6-5.0)
[2019-09-12] MEDS: IPRATROPIUM/ALBUTEROL 0.5-2.5 MG/3 ML AMPUL NEB SCH (08:20)
[2019-09-12] MEDS ORDERED: LOSARTAN POTASSIUM 50 MG TABLET PO SCH (10:00)
[2019-09-12] MEDS: INSULIN LISPRO 100 UNIT/ML 3 ML VIAL SUBCUT SCH (11:49)
[2019-09-12] MEDS: SEVELAMER HCL 800 MG TABLET PO SCH (11:50)
[2019-09-12] MEDS: DOCUSATE SODIUM 100 MG/10 ML UDC PO SCH (11:52)
[2019-09-12] MEDS: PATIROMER 8.4 GM SUSP PACKET PO SCH (11:52)
[2019-09-12] MEDS: CALCITRIOL 0.25 MCG CAPSULE PO SCH (11:52)
[2019-09-12] MEDS: INSULIN GLARGINE,HUM.REC.ANLOG 1,000 UNIT/10 ML VIAL SUBCUT SCH (11:52)
--- NOTE | 2019-09-12 11:52 | PDOC PROGRESS REPORT ---
Subjective Progress Note for:: 09/12/19 Subjective:: I am seeing the patient during dialysis this morning. Her AV fistula is unfortunately not working very well. It blew up a couple of times and it infiltrated twice. I talked to her regarding placement of trialysis catheter today so we can dialyze her and get some ultrafiltration since she is a still requiring high oxygen and has been desaturating on nasal cannula. She has been refusing to wear the BiPAP. The plan is to place in a trialysis catheter today and then will dialyze her afterwards then next week we will place a PermCath in. Meanwhile I we will arrange for a vascular surgeon to do a fistulogram on her AV fistula so it can be repaired if there is any stenotic lesion. Patient agreed but would like to talk to her daughter also. I then talked to catieurgeon, Dr. Starr who agreed to place a trialysis catheter today. We then send the patient back to her room. After few minutes the patient's daughter came back to the room and I talked her over the phone. After telling her the plan she was not sure if her mom will really go to all of those but she agreed to talk to her regarding the trialysis catheter for today. I told her that the patient agreed when I talked to her here in the dialysis room earlier this morning. So she will talk to her mom again. After another 30 minutes or so, I got a call from the patient's nurse telling me that the patient refuses now to have a dialysis catheter placed or any other procedures at all and would just want to go home on hospice. I also got a call from the hospitalist telling me the same thing. I then went back to her room and talk to the patient and her daughter just to confirm her decision not to do any further dialysis treatments nor any procedures with regards to vascular access wether it is a catheter or an AV fistula. Patient and daughter confirmed that. She also told me that she just wants to go home on hospice. I asked her if she knows the complications of her decisions and she told me she does and she knows exactly what can happen. When I asked her what is going to happen she told me " she will ". She seems understood everything and the daughter is in agreement so we will respect her wishes and discontinue dialysis at this point. I also told them that with her condition it will probably take a week or less to end of life. They understood. Reason For Visit: ESRD,HYPERKALEMIA,VOLUME OVERLOAD Physical Exam Vital Signs: Temp Pulse Resp BP Pulse Ox 98.0 F 62 16 124/32 L 93 09/12/19 00:56 09/12/19 07:00 09/12/19 00:56 09/12/19 00:56 09/12/19 00:56 Intake & Output 09/11/19 09/12/19 09/13/19 06:59 06:59 06:59 Intake Total 150 Output Total 2785 550 Balance -2785 -400 Weight 59.9 kg 58.7 kg Exam: General appearance: PRESENT: no acute distress, cooperative, fairly developed, fairly nourished Head exam: PRESENT: atraumatic, normocephalic Eye exam: PRESENT: conjunctiva pale, PERRLA. ABSENT: scleral icterus Neck exam: ABSENT: JVD Respiratory exam: PRESENT: Coarse breath sounds. ABSENT: crackles, rales, rhonchi, unlabored, wheezes Cardiovascular exam: PRESENT: Regular rate rhythm -+S1, +S2. ABSENT: diastolic murmur, systolic murmur GI/Abdominal exam: PRESENT: normal bowel sounds, soft. ABSENT: guarding, mass, tenderness Extremities exam: ABSENT: No edema Neurological exam: PRESENT: alert, awake, oriented to person, place and time. Skin exam: PRESENT: dry, warm, Results Laboratory Results: 09/12/19 05:24 09/12/19 05:24 09/12/19 09/12/19 05:24 05:24 WBC 7.9 RBC 2.60 L Hgb 8.4 L Hct 24.7 L MCV 95 MCH 32.2 MCHC 33.9 RDW 13.6 Plt Count 162 Sodium 133.6 L Potassium 4.8 Chloride 97 L Carbon Dioxide 26 Anion Gap 11 BUN 69 H Creatinine 5.90 H Est GFR ( Amer) 8 L Glucose 101 Calcium 9.2 Phosphorus 5.1 H Magnesium 2.6 H 09/09/19 09/09/19 09/09/19 15:29 15:29 20:45 Creatine Kinase 114 CK-MB (CK-2) 6.25 H Troponin I 3.330 3.870 NT-Pro-B Natriuret Pep 01299 H Impressions: Chest X-Ray 09/09/19 15:41 IMPRESSION: CHF. Assessment & Plan - Diagnosis (1) Acute respiratory failure with hypoxia Is this a current diagnosis for this admission?: Yes Plan: Due to acute pulmonary congestion with worsening kidney function. Slightly improved after the first dialysis treatment yesterday. However she continues to have some oxygen desaturation. Continues to refuse BiPAP. Seems comfortable on nasal cannula though. (2) Acute CHF Qualifiers: Heart failure type: systolic Qualified Code(s): I50.21 - Acute systolic (congestive) heart failure Is this a current diagnosis for this admission?: Yes Plan: Due to worsening ESRD. (3) Uremia Is this a current diagnosis for this admission?: Yes Plan: Slightly improved from admission. (4) ESRD needing dialysis Is this a current diagnosis for this admission?: Yes Plan: Secondary to diabetic nephropathy with contribution of hypertensive nephrosc lerosis with nephrotic range proteinuria will finally get to the point that she needs renal replacement therapy due to uremic symptoms. Patient had a total of about 30 minutes of interrupted dialysis this morning but the AV fistula was malfunctioning. As a stated above patient refused any more vascular access procedures and indicated to discontinue dialysis wanting to just go home on hospice. We will respect her wishes. (5) Hyperkalemia Is this a current diagnosis for this admission?: Yes Plan: Resolved with dialysis. (6) Anemia in chronic kidney disease (CKD) Qualifiers: Chronic kidney disease stage: on chronic dialysis Qualified Code(s): N18.6 - End stage renal disease; D63.1 - Anemia in chronic kidney disease; Z99.2 - Dependence on renal dialysis Is this a current diagnosis for this admission?: Yes Plan: Repeat iron studies here showed an iron of 22.5, T sat of only 10 and ferritin of 191. (7) Diabetes mellitus type 2 in nonobese Is this a current diagnosis for this admission?: Yes Plan: Controlled. (8) Chronic kidney disease-mineral and bone disorder Is this a current diagnosis for this admission?: Yes Plan: On calcitriol, vitamin D and Renvela. (9) Hypermagnesemia Is this a current diagnosis for this admission?: Yes Plan: Due to ESRD. Improved. (10) Hypertension Is this a current diagnosis for this admission?: Yes Plan: Controlled. - Notes Notes: Patient will go on hospice. I will sign off at this time. - Time Time with patient: Greater than 35 minutes
[2019-09-12] MEDS: ISOSORBIDE MONONITRATE 30 MG TAB.ER.24H PO SCH (11:54)
[2019-09-12] MEDS: HYDRALAZINE HCL 50 MG TABLET PO SCH (11:54)
[2019-09-12 13:22] VITALS: BP 130/71
--- NOTE | 2019-09-12 14:27 | Left Against Medical Advice ---
Against Medical Advice Admission Date/Time: 09/09/19 17:27 Primary Care Provider: LUCRETIA ROLDAN Date of Patient Emigration: 09/12/19 - Diagnosis: (1) Acute respiratory failure with hypoxia Is this a current diagnosis for this admission?: Yes (2) Acute CHF Is this a current diagnosis for this admission?: Yes (3) ESRD needing dialysis Is this a current diagnosis for this admission?: Yes (4) Uremia Is this a current diagnosis for this admission?: Yes (5) Hyperkalemia Is this a current diagnosis for this admission?: Yes (6) Anemia of chronic disease Is this a current diagnosis for this admission?: Yes (7) Hypertension Is this a current diagnosis for this admission?: Yes (8) Dyslipidemia Is this a current diagnosis for this admission?: Yes (9) Diabetes mellitus type 2 in nonobese Is this a current diagnosis for this admission?: Yes (10) Hypothyroidism Is this a current diagnosis for this admission?: Yes (11) Restless leg syndrome Is this a current diagnosis for this admission?: Yes (12) Depression Is this a current diagnosis for this admission?: Yes - Summary: Summary: Please see Admission and Progress Notes as well. RAHUL ORTIZ is a 83 F, who LEFT AGAINST MEDICAL ADVICE. The Patient was admitted on 09/09/19 17:27. Patient is an 83-year-old female with PMH significant for HTN, dyslipidemia, CHF, CAD, DM, RLS, hypothyroidism, anemia, depression, ESRD who had recently started HD. She presented to the ED with complaints of shortness of breath. She was found to have SPO2 in the 70s and was placed on oxygen. The patient received QUALITY ASSURANCE TECH x1 while hospitalized and her oxygenation improved. While hospitalized the patient made a decision that she would like to be DNR status, but wanted to continue to pursue hemodialysis. She was taken to dialysis on 09/12/2019 and was found to have a dysfunctional AV graft. She returned to her room and arrangements were made to place a temporary HD catheter however the patient decided that she did not want to pursue dialysis any longer and wished to be discharged home with hospice. Case Management began to work on getting hospice set up. Prior to completing arrangements the patient decided that she did not wish to be in the hospital a longer and she left with her daughter AGAINST MEDICAL ADVICE. (1) Acute respiratory failure with hypoxia Is this a current diagnosis for this admission?: Yes Plan: Patient's respiratory failure and hypoxia likely related to volume overload She continues to require supplemental oxygen but slightly less this afternoon Continue to wean FiO2 as tolerated Continue albuterol/ipratropium nebs every 6 hours (2) Acute CHF Qualifiers: Heart failure type: systolic Qualified Code(s): I50.21 - Acute systolic (congestive) heart failure Is this a current diagnosis for this admission?: Yes Plan: [facility] will have HD tomorrow Continue ARB and hydralazine Patient's heart rate remains borderline for the addition of beta-gali (3) ESRD needing dialysis Is this a current diagnosis for this admission?: Yes Plan: Continue sevelamer 800 mg p.o. 3 times daily with meals Continue calcitriol 0.25 mcg p.o. daily Spoke with horse trainer today and patient will have HD tomorrow Awaiting case management to secure outpatient dialysis chair (4) Uremia Is this a current diagnosis for this admission?: Yes Plan: For HD tomorrow (5) Hyperkalemia Is this a current diagnosis for this admission?: Yes Plan: Resolved Continue patiromer calcium sorbitex 8.4 gm po daily per renal Monitor (6) Anemia of chronic disease Is this a current diagnosis for this admission?: Yes Plan: No signs of active hemorrhage Likely a dilutional component in H/H Continue erythropoietin 30,000 units after HD Continue ferrous sulfate 325 mg p.o. daily Transfuse for Hgb < 7.0 (7) Hypertension Is this a current diagnosis for this admission?: Yes Plan: Patient's diastolic BP is low however she remains asymptomatic with an adequate MAP Continue amlodipine 10 mg p.o. daily at at bedtime Continue hydralazine 50 mg p.o. every 12 hours Continue isosorbide mononitrate 30 mg p.o. every 12 hours Decrease losartan to 50 mg p.o. daily (8) Dyslipidemia Is this a current diagnosis for this admission?: Yes Plan: Continue atorvastatin 20 mg p.o. daily at bedtime (9) Diabetes mellitus type 2 in nonobese Is this a current diagnosis for this admission?: Yes Plan: Continue FS BS with SSI correction scale (10) Hypothyroidism Is this a current diagnosis for this admission?: Yes Plan: Continue levothyroxine 0.037 mg p.o. daily (11) Restless leg syndrome Is this a current diagnosis for this admission?: Yes Plan: Continue ropinirole 1 mg p.o. daily (12) Depression Is this a current diagnosis for this admission?: Yes Plan: Continue paroxetine 5 mg p.o. daily
== END 2019-09-12 13:37 | disposition hospice, home (50) | DRG 291 ==
LOC: ER 14:37 → EH 17:27 → 3S 21:03
PROVIDERS: ADMIT Internal Medicine; ATTEND Nurse Practitioner
PROC: 5A1D70Z Performance of Urinary Filtration, Intermittent, Less than 6 Hours Per Day (ICD-10-PCS; principal; 2019-09-10)
DX: I13.2 Hypertensive heart and chronic kidney disease with heart failure and with stage 5 chronic kidney disease, or end stage renal disease (principal); N18.6 End stage renal disease; I50.23 Acute on chronic systolic (congestive) heart failure; J96.01 Acute respiratory failure with hypoxia; T82.590A Other mechanical complication of surgically created arteriovenous fistula, initial encounter; N25.81 Secondary hyperparathyroidism of renal origin; E11.22 Type 2 diabetes mellitus with diabetic chronic kidney disease; E78.5 Hyperlipidemia, unspecified; M19.90 Unspecified osteoarthritis, unspecified site; E87.5 Hyperkalemia; I25.10 Atherosclerotic heart disease of native coronary artery without angina pectoris; F32.9 Major depressive disorder, single episode, unspecified; E03.9 Hypothyroidism, unspecified; D63.1 Anemia in chronic kidney disease; G25.81 Restless legs syndrome; Z79.899 Other long term (current) drug therapy; Z79.4 Long term (current) use of insulin; Z88.0 Allergy status to penicillin; Z88.8 Allergy status to other drugs, medicaments and biological substances; Z79.890 Hormone replacement therapy; Z95.828 Presence of other vascular implants and grafts; Z99.2 Dependence on renal dialysis; E83.41 Hypermagnesemia; Z53.29 Procedure and treatment not carried out because of patient's decision for other reasons; Y83.2 Surgical operation with anastomosis, bypass or graft as the cause of abnormal reaction of the patient, or of later complication, without mention of misadventure at the time of the procedure; Z66 Do not resuscitate; E83.9 Disorder of mineral metabolism, unspecified; E11.43 Type 2 diabetes mellitus with diabetic autonomic (poly)neuropathy; E11.319 Type 2 diabetes mellitus with unspecified diabetic retinopathy without macular edema; E83.39 Other disorders of phosphorus metabolism; N25.0 Renal osteodystrophy; K21.9 Gastro-esophageal reflux disease without esophagitis; H54.61 Unqualified visual loss, right eye, normal vision left eye; Z83.3 Family history of diabetes mellitus; Z84.1 Family history of disorders of kidney and ureter; Z95.0 Presence of cardiac pacemaker; Z86.73 Personal history of transient ischemic attack (TIA), and cerebral infarction without residual deficits
CPT/HCPCS: 36415; 71046; 80048; 80053; 81001; 82550; 82553; 82607; 82728; 82746; 82803; 82962; 83540; 83550; 83735; 83880; 84100; 84484; 85025; 85027; 85045; 85610; 86317; 86704; 87340; 87522; 93005; 93010; 94640; 94660; 99291; J0610; J1650; J1815; J1940; J2405; J3490; Q5105